=== PATIENT | female | born 1970 | race Caucasian/White ===

== ENCOUNTER → 2017-07-10 06:02 | Outpatient (CLI) | payer OTHER, SELFPAY ==
[2017-07-10 08:29] LABS: Hematocrit 40.3 % (37-47); Hemoglobin 12.9 g/dl (12.0-15.0); Mean Corpuscular Hgb 30.6 pg (27.0-32.0); Mean Corpuscular Volume 95.5 fL (81-99); Mean Platelet Vol. 11.3 fl (6.2-12.0); Platelet Count 226 K/mm3 (150-450); RBC Distribution Width CV 12.5 % (11.6-14.6); RBC Distribution Width SD 43.4 fl (35.1-43.9); Red Blood Count 4.22 M/mm3 (4.2-5.4); White Blood Count 5.8 K/mm3 (4.4-11.0)
[2017-07-10 08:40] LABS: Scan Indicated on CBC? Y/N NO
[2017-07-10 08:58] LABS: ALB/GLOB Ratio 1.2 RATIO (0.9-2.4); AST(SGOT) 11 U/L (15-37); Alanine Aminotransfer ALT/SGPT 19 U/L (13-56); Albumin, Serum 3.8 g/dL (3.2-5.0); Alkaline Phosphatase 59 U/L (45-117); Anion Gap 7 (5-15); BUN 17 mg/dL (7-18); BUN/Creat Ratio 26.5 RATIO (10-20); Calcium,Total 8.3 mg/dL (8.5-10.1); Chloride 105 mmol/L (98-107); Creatinine, Serum 0.64 mg/dL (0.55-1.02); EST Glomerular Filtration Rate 106 mL/min (>60); Est Glom Filt Rate - Afr Amer 129 mL/min (>60); Globulin 3.3 g/dL (2.2-4.2); Glucose 73 mg/dL (74-106); Potassium 3.8 mmol/L (3.5-5.1); Protein, Total 7.1 g/dL (6.4-8.2); Sodium Level 138 mmol/L (136-145); Thyroid Stim Hormone (TSH) 1.37 uIU/mL (0.358-3.74)
== END ==
PROVIDERS: Family Provider Preventive Medicine Occupational Medicine; PCP Preventive Medicine Occupational Medicine; Visit Provider Preventive Medicine Occupational Medicine
DX: R53.83 Other fatigue (principal)
CPT/HCPCS: 36415; 80053; 84443; 85027

== ENCOUNTER → 2017-08-13 10:32 | Outpatient (CLI) | payer OTHER, SELFPAY | PROVIDERS: Family Provider Internal Medicine; PCP Internal Medicine; Visit Provider Internal Medicine | DX: K92.2 Gastrointestinal hemorrhage, unspecified (principal) | CPT/HCPCS: 82274 ==

== ENCOUNTER 2017-09-11 07:21 | Day surgery (SDC) | payer OTHER, SELFPAY ==
[2017-09-11] VITALS (8 sets, daily range): BP systolic 92–114; BP diastolic 46–78; PULSE 64–81; RESP 14–18; TEMP 36.8–36.9; O2SAT 99–100; BMI 26.6
--- NOTE | 2017-09-11 09:10 | PCM.OPRPT ---
Problem List (1) Lower GI bleed Status: Chronic Report of Operation Date of Procedure: 09/11/17 Pre-Operative Diagnosis: GI bleeding Post-Operative Diagnosis: Sigmoid polyp Surgery/Procedure Performed:: Colonoscopy with snare polypectomy and tattoo Specimen's removed: Sigmoid polyp Description of Procedure: The major risks and benefits associated with the procedure were explained to the patient in detail. The patient verbalized understanding and agreement with the same. The patient was brought to the endoscopy suite. After adequate sedation was achieved, the patient was placed in the left lateral decubitus position and a digital rectal exam was performed. This examination was within normal limits. A well-lubricated colonoscope was then inserted into the rectum and advanced under direct visualization to the level of the cecum. The bowel prep was good. The cecum was identified by both visual and anatomic landmarks. A photograph was taken of the end of the cecum. The scope was then fully withdrawn while examining the color, texture, anatomy and integrity of the mucosa from the cecum to the anal canal. The findings were consistent with normal colonic mucosa. The patient did have a large pedunculated polyp in the mid sigmoid colon. This was at approximately 40 cm. The cautery snare was used to take this polyp at its stalk in the circumferential colon at this point was tattooed with Isa ink. The specimen was then removed. Over 6 minutes were taken to examine the colonic mucosa. Upon reaching the rectum the scope was retroflexed to examine the distal rectal vault. The scope was then straightened and was completely retrieved upon exiting the anal canal and the procedure was terminated. The patient was then transferred to the recovery room in stable condition. Recommendations for follow up: Dependent on pathology
--- NOTE | 2017-09-11 09:50 | COLBX_PTH ---
PATIENT: CARLOS ALBERTO RAO LOC: EN U#:[id number] AGE/SX: 46/F ROOM: RE09/11/[address]: Dr. Laron Scott MD : 1970 BED: DIS: 09/11/2017 SPEC #: [id number] RECD: 09/11/17 09:50 STATUS: KARIN NATHAN #: [id number] ANNA: 09/11/17 09:[address]: Laron Scott DEPT: SURGICAL PATHOLOGY RECD BY: Chuck Whitten ENTERED: 09/11/17 12:22 SP TYPE: COLON BX OTHR DR: Dr. 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 AM:odell 09/12/17 COMMENT The dysplasia is close to the lumen surface. Clinical correlation is suggested. MICROSCOPIC DESCRIPTION Slides are reviewed. GROSS DESCRIPTION Received in fixative is one container labeled with the patient's name and designated sigmoid colon polyp. The specimen consists of a polypoid fragment of cisneros tissue measuring 2.5 x 1.5 x 0.6 cm. Also present in the specimen container are multiple irregular fragments of cisneros tissue measuring in aggregate 0.3 x 0.3 x 0.1 cm. The largest fragment is bisected and submitted along with the smaller fragments in one cassette. / AM:odell 09/11/17 TC:1 CPT: 48754
== END 2017-09-11 10:19 | disposition home or self-care (01) ==
LOC: EN 07:21 → AC 07:22
PROVIDERS: Family Provider Internal Medicine; PCP Internal Medicine; Visit Provider Surgery
PROC: 0DJD8ZZ Inspection of Lower Intestinal Tract, Via Natural or Artificial Opening Endoscopic (ICD-10-PCS; CPT 45378; principal; 2017-09-11 08:25)
DX: D12.5 Benign neoplasm of sigmoid colon (principal); L81.8 Other specified disorders of pigmentation; G43.909 Migraine, unspecified, not intractable, without status migrainosus; Z87.891 Personal history of nicotine dependence
CPT/HCPCS: 45380; 88305; J7120; A4648

== ENCOUNTER → 2017-11-15 13:54 | Outpatient (CLI) | payer OTHER, SELFPAY ==
--- NOTE | 2017-11-15 13:55 | US_ITS ---
STUDY: ABDOMINAL ULTRASOUND - RIGHT UPPER QUADRANT REASON FOR VISIT: Female, 46 years old. Right upper quadrant pain. TECHNIQUE: Ultrasound evaluation of the right upper quadrant was performed with real-time and static rushing-scale imaging. TECHNICAL QUALITY: Adequate. COMPARISON: None. FINDINGS: Liver: The liver measures 15.2 cm. There is normal echogenicity of the liver. The bile ducts are within normal limits. There is hepatic color flow. The direction of portal flow is hepatopetal. There is a 1.3 cm x 1.7 cm x 1.57 m cyst in the left lobe of the liver. Gallbladder: Normal distended gallbladder. The gallbladder wall measures 2.4 mm. There is a negative sonographic Carroll's sign. There is no pericholecystic fluid. There are no gallstones. Common Bile Duct (C.B.D.): The common bile duct measures 1.6 mm. Pancreas: Normal size of the head, body and tail of the pancreas. There is normal echogenicity of the pancreas. There is no demonstrated pancreatic mass or cyst. Right Kidney: Normal size of the right kidney. The right kidney measures 10.7 cm x 4.8 cm x 3.9 cm. Normal renal cortex. The right cortex measures 1.0 cm. There is no demonstrated renal mass or cyst. There is no right hydronephrosis. US/Gallbladder IMPRESSION: 1.3 cm x 1.7 cm x 1.5 cm cyst in the left lobe of the liver. Electronically Signed: Neri Nur MD at 15:34 EDT Tel [phone], Service support ,
== END ==
PROVIDERS: Family Provider Internal Medicine; PCP Internal Medicine; Visit Provider Nurse Practitioner Family
DX: R10.11 Right upper quadrant pain (principal); R10.13 Epigastric pain; K21.9 Gastro-esophageal reflux disease without esophagitis
CPT/HCPCS: 76705

== ENCOUNTER → 2017-11-28 06:36 | Outpatient (CLI) | payer OTHER, SELFPAY ==
[2017-11-29 14:52] LABS: H. Pylori Antibody (IgG) 0.31 (0.00-0.79)
== END ==
PROVIDERS: Family Provider Internal Medicine; PCP Internal Medicine; Visit Provider Surgery
DX: R10.13 Epigastric pain (principal)
CPT/HCPCS: 36415; 86677

== ENCOUNTER 2018-02-08 06:57 | Day surgery (SDC) | payer OTHER, SELFPAY ==
--- NOTE | 2018-02-08 | IMM_PTH ---
PATIENT: CARLOS ALBERTO RAO LOC: EN U#:[id number] AGE/SX: 47/F ROOM: RE02/08/[address]: Dr. Laron Scott MD : 1970 BED: DIS: 02/08/2018 SPEC #: [id number] RECD: 02/08/18 12:11 STATUS: KARIN RECecy #: [id number] ANNA: 02/08/18 00:[address]: Laron Scott DEPT: IMMUNOHISTOCHEMISTRY RECD BY: Libby Stiles ENTERED: 02/08/18 12:11 SP TYPE: IMMUNO OTHR DR: Dr. Jason Garner MD Tissues: Stomach, NOS Procedures: H Pylori (initial) PHYSICIAN & [place] [id number] SPECIMEN INFORMATION: Tissue Source: Antral biopsy Clinical Info: Epigastric abdominal pain Specimen Number: [id number] CPT code: 15082 METHODOLOGY: Deparaffinized sections of prefer/formalin-fixed tissue or PAP/DQ stained slides are incubated with monoclonal/polyclonal antibodies/oligonucleotide probes. Localization is made via biotin free immunoperoxidase method. Appropriate controls are performed and reacted as expected. Results on target cell population are indicated in the following table: RESULTS: ANTIBODY / CLONE RESULT H Pylori (polyclonal) negative These tests were developed and their performance characteristics determined by [facility]. They may not have been cleared or approved by the U.S. Food and Drug Administration. The FDA has determined that such clearance or approval is not necessary. INTERPRETATION: Antral biopsy: Negative for Helicobacter pylori organisms. AM:odell 02/11/18
[2018-02-08 07:11] VITALS: BP 108/77; PULSE 67; RESP 12; TEMP 36.8; O2SAT 100; BMI 26.9
--- NOTE | 2018-02-08 08:00 | GASB_PTH ---
PATIENT: CARLOS ALBERTO RAO LOC: EN U#:[id number] AGE/SX: 47/F ROOM: RE02/08/[address]: Dr. Laron Scott MD : 1970 BED: DIS: 02/08/2018 SPEC #: [id number] RECD: 02/08/18 10:07 STATUS: KARIN NATHAN #: [id number] ANNA: 02/08/18 08:[address]: Laron Scott DEPT: SURGICAL PATHOLOGY RECD BY: Toby Sanchez ENTERED: 02/08/18 10:52 SP TYPE: Gastric Bx OTHR DR: Dr. Jason Garner MD Tissues: Gastric mucous membrane Procedures: Surgery Specimen Level IV HEADER OPERATION: EGD ([facility] [place]) PRE-OP DIAGNOSIS: Epigastric abdominal pain TISSUE SUBMITTED: Antral biopsy for histo and H. pylori MICROSCOPIC DIAGNOSIS Gastric antrum, biopsy: Mild chronic gastritis. AM:odell 02/11/18 COMMENT The results of immunohistochemistry for Helicobacter pylori will be reported separately ([id number]). MICROSCOPIC DESCRIPTION Slides are reviewed. GROSS DESCRIPTION Received in fixative is one container labeled with the patient's name and designated antral biopsy. The specimen consists of two irregular fragments of light cisneros soft tissue that in aggregate measure 0.4 x 0.3 x 0.1 cm. The specimen is totally submitted in one cassette. / SJ:rg 02/08/18 TC:3 CPT: 74104
[2018-02-08 08:19] VITALS: BP 108/77; BP 87/38; PULSE 74; RESP 16; TEMP 37; O2SAT 98
--- NOTE | 2018-02-08 08:19 | OP.ENDO_ITS ---
Patient Name: Danielle Carlton Procedure Date: 02/08/2018 7:56 AM Date of : 1970 Age: 47 Procedure: Upper GI endoscopy Indications: Heartburn, Suspected gastro-esophageal reflux disease Providers: Laron Scott MD Referring MD: Jason Garner Md Medicines: Monitored Anesthesia Care Complications: No immediate complications. Procedure: Pre-Anesthesia Assessment: - Prior to the procedure, a History and Physical was performed, and patient medications and allergies were reviewed. The patient's tolerance of previous anesthesia was also reviewed. The risks and benefits of the procedure and the sedation options and risks were discussed with the patient. All questions were answered, and informed consent was obtained. Prior Anticoagulants: The patient has taken no previous anticoagulant or antiplatelet agents. After reviewing the risks and benefits, the patient was deemed in satisfactory condition to undergo the procedure. After obtaining informed consent, the endoscope was passed under direct vision. Throughout the procedure, the patient's blood pressure, pulse, and oxygen saturations were monitored continuously. The gastroscope was introduced through the mouth, and advanced to the second part of duodenum. The upper GI endoscopy was accomplished without difficulty. The patient tolerated the procedure well. Scope In: 8:07:34 AM Scope Out: 8:10:58 AM Total Procedure Duration Time 0 hours 3 minutes 24 seconds Findings: Mild inflammation was found in the first portion of the duodenum. The esophagus was normal. The stomach was normal. The cardia and gastric fundus were normal on retroflexion. Biopsies were taken with a cold forceps in the gastric antrum for Helicobacter pylori testing. Impression: - Duodenitis. - Normal esophagus. - Normal stomach. - Biopsies were taken with a cold forceps for Helicobacter pylori testing. Recommendation: - Discharge patient to home. - Resume regular diet. - Continue present medications. - Patient has a contact number available for emergencies. The signs and symptoms of potential delayed complications were discussed with the patient. Return to normal activities tomorrow. Written discharge instructions were provided to the patient. - Await pathology results. Procedure Code(s): --- Professional --- 29814, Esophagogastroduodenoscopy, flexible, transoral; with biopsy, single or multiple Diagnosis Code(s): --- Professional --- K29.80, Duodenitis without bleeding R12, Heartburn CPT copyright 2017 [employer]. All rights reserved. The codes documented in this report are preliminary and upon medical biller coder review may be revised to meet current compliance requirements. MD Laron Pelaez MD 02/08/2018 8:18:55 AM This report has been signed electronically. Number of Addenda: 0 Note Initiated On: 02/08/2018 7:56 AM
[2018-02-08 08:25] VITALS: BP 103/69; BP 108/77; PULSE 77; RESP 16; O2SAT 96
[2018-02-08 08:30] VITALS: BP 100/70; BP 108/77; PULSE 75; RESP 16; O2SAT 96
[2018-02-08 08:35] VITALS: BP 108/77; BP 99/76; PULSE 72; RESP 16; TEMP 36.8; O2SAT 100
[2018-02-08 08:55] VITALS: BP 108/77
--- NOTE | 2018-02-26 07:44 | PCM.HP.STD ---
Problem List (1) Abdominal pain Status: Acute Qualifiers: Abdominal location: epigastric Qualified Code(s): R10.13 - Epigastric pain History of Present Illness Date of Admission: 02/08/18 The patient is a 47 year old F who has been having epigastric pain and GERD and is here for evaluation of her distal esophagus. Past Medical History Past Medical History (Chronic Problems): Chronic Problems (Last Reviewed 01/08/18 @ 14:10 by Deb Che) Lower GI bleed (Chronic) Chronic constipation (Chronic) Chronic sinusitis (Chronic) Migraines (Chronic) Heart valve problem (Chronic) Heart murmur (Chronic) Frequent headaches (Chronic) Back problem (Chronic) Medical History: Medical History (Last Reviewed 01/08/18 @ 14:10 by Deb Che) Lower GI bleed (Chronic) K92.2 Chronic constipation (Chronic) K59.09 Chronic sinusitis (Chronic) J32.9 Migraines (Chronic) G43.909 Heart valve problem (Chronic) I38 Heart murmur (Chronic) R01.1 Frequent headaches (Chronic) R51 Back problem (Chronic) M53.9 Abdominal pain R10.9 Nausea R11.0 Seasonal allergies J30.2 H/O: hysterectomy Z90.710 Allergies adhesive tape Allergy (Verified 02/08/18 07:09) Rash Home Medications: Ambulatory Orders Medication Instructions Recorded calcium carbonate 600 mg calcium 600 mg PO QDAY tab 08/06/17 (1,500 mg) tablet rizatriptan 10 mg tablet 10 mg PO PRN PRN 08/08/17 lactobacillus rhamnosus R0011 20 1 tab PO DAILY 11/14/17 billion cell capsule omeprazole 40 mg capsule,delayed 40 mg PO DAILY #30 cap 01/11/18 release Surgical History: Surgical History (Last Reviewed 01/08/18 @ 14:10 by Deb Che) History of colonoscopy Onset Date: ~09/11/17 Z98.890 Smoking Status: Former smoker Review of Systems Constitutional: Denies: Anorexia, Fever HEENT: Denies: Difficulty Swallowing Cardiovascular: Denies: Chest Pain Respiratory: Reports: Cough Gastrointestinal: Reports: Abdominal Pain. Denies: Nausea Genitourinary: Denies: Dysuria Musculoskeletal: Denies: Arm Pain Neurological: Denies: Balance problems Psychiatric: Denies: Anxiety, Depression Hematologic/ Lymphatic: Denies: Adenopathy, Anemia VTE Information - Inpt Only VTE Present on Admission: No - Physical Exam General: Alert HEENT: Atraumatic, PERRLA, EOMI, Normocephalic Neck: Supple, No JVD, Negative Carotid Bruits Lungs: Clear to auscultation, Normal air movement Cardiovascular: Regular rate, No murmurs Abdomen: Bowel Sounds Present, Soft, Non Tender, Non-Distended Extremities: No edema, Capillary Refill Less than 3 Seconds Skin: No rashes, No breakdown Musculoskeletal: No Tenderness to Palpation of Joints or Extremities Neurological: Cranial nerves II-XII grossly intact Psych/Mental Status: Normal Affect, Appropriate Vital Signs Temp Pulse Resp BP Pulse Ox 98.2 F 72 16 99/76 100 02/08/18 08:35 02/08/18 08:35 02/08/18 08:35 02/08/18 08:35 02/08/18 08:35 Oxygen Delivery Method Room Air Weight: 171 lb 8.314 oz Body Mass Index (BMI) 26.9 Assessment/Plan All Active Problems (Last Reviewed 01/08/18 @ 14:10 by Deb Ceh) Nausea (Acute) Abdominal pain (Acute) Sinusitis (Acute) 47-year-old female for EGD for GERD and epigastric pain 1. I explained endoscopy in detail to the patient. I explained the risks including but not limited to stroke or heart attack with anesthesia, perforation of the GI tract, bleeding, infection. I explained that any of these could necessitate further emergency surgery. The patient understands and all questions were answered sufficiently. The patient wishes to proceed with procedure. Laron Scott MD Pager: [facility] [address] [place] [address], [address] [place] [address] Office:
== END 2018-02-08 09:05 | disposition home or self-care (01) ==
LOC: EN 06:58 → AC 07:07
PROVIDERS: Family Provider Internal Medicine; PCP Internal Medicine; Visit Provider Surgery
PROC: 0DJ08ZZ Inspection of Upper Intestinal Tract, Via Natural or Artificial Opening Endoscopic (ICD-10-PCS; CPT 43235; principal; 2018-02-08 07:55)
DX: K29.50 Unspecified chronic gastritis without bleeding (principal); K29.80 Duodenitis without bleeding; K21.9 Gastro-esophageal reflux disease without esophagitis; K59.00 Constipation, unspecified; J32.9 Chronic sinusitis, unspecified; G43.909 Migraine, unspecified, not intractable, without status migrainosus; R01.1 Cardiac murmur, unspecified; R12 Heartburn; Z90.710 Acquired absence of both cervix and uterus; Z87.891 Personal history of nicotine dependence
CPT/HCPCS: 43239; 88305; 88342; J7120

== ENCOUNTER → 2018-02-14 13:57 | Outpatient (CLI) | payer OTHER, SELFPAY ==
--- NOTE | 2018-02-14 14:08 | US_ITS ---
STUDY: ABDOMINAL ULTRASOUND REASON FOR EXAM: Female, 47 years old. Liver cysts TECHNIQUE: Transabdominal ultrasound was performed with real-time and static rushing scale imaging. TECHNICAL QUALITY: Adequate. COMPARISON: November 15, 2017 FINDINGS: Liver: The liver measures 15 cm. There is normal echogenicity of the liver. The bile ducts are within normal limits. There is hepatic color flow. The direction of portal flow is hepatopetal. There is a cyst in the LEFT lobe of liver measuring 14 x 17 x 16 mm. Portal vein measurement: Gallbladder: Normal distended gallbladder. The gallbladder wall measures 2 mm. There is a negative sonographic Carroll's sign. There is no pericholecystic fluid. There are no gallstones. Common Bile Duct (C.B.D.): The common bile duct measures 3 mm. Pancreas: Normal size of the head, body and tail of the pancreas. There is normal echogenicity of the pancreas. There is no demonstrated pancreatic mass or cyst. Spleen: Normal size of the spleen. The spleen measures 8.5 x 4.4 x 3.6 cm. Right Kidney: Normal size of the right kidney. The right kidney measures 10.9 x 5.6 x 3.7 cm. Normal renal cortex. The right cortex measures 1.2 cm. There is no demonstrated renal mass or cyst. There is no right hydronephrosis. Left Kidney: Normal size of the left kidney. The left kidney measures 10.8 x 4.7 x 4.9 cm. Normal renal cortex. The left cortex measures 1.4 cm. There is no demonstrated renal mass or cyst. There is no left hydronephrosis. Aorta: 2.1 cm I.V.C.: The IVC is patent. There is no ascites. US/Abdomen Complete IMPRESSION: There is a cyst in the LEFT lobe of liver as described. This is unchanged from prior study. There is NO solid liver mass. There is NO cholelithiasis, cholecystitis or biliary ductal dilatation. Electronically Signed: Isidro Puri MD at 4:55 EDT , Service support ,
== END ==
PROVIDERS: Family Provider Internal Medicine; PCP Internal Medicine; Visit Provider Nurse Practitioner Family
DX: K76.89 Other specified diseases of liver (principal)
CPT/HCPCS: 76700

== ENCOUNTER → 2018-05-01 13:57 | Outpatient (CLI) | payer OTHER, SELFPAY ==
[2018-02-26 14:35] VITALS: BMI 27.2
--- NOTE | 2018-05-01 13:59 | BI_ITS ---
MAMMOGRAPHY - BILATERAL SCREENING REASON FOR EXAM: Female, 47 years old. Routine annual screening examination. PERTINENT HISTORY: Aunt with breast cancer. TECHNIQUE: Digital bilateral breast sujit (3D mammographic acquisition) in the CC and MLO projections. 2-D mediolateral oblique (MLO) and craniocaudad (CC) views of both breasts were obtained. CAD: Full Field Digital Mammography with Computer Added Detection was performed. COMPARISON: Comparison is made with prior study dated April 30, 2017 and April 25, 2016. FINDINGS: Breast Composition: There are scattered areas of fibroglandular density. There are no dominant masses or suspicious calcifications. There is a stable 7.9 mm x 4 mm well-defined nodule in the upper deep lateral portion of the left breast. This most likely represents a small lymph node. No other significant abnormalities are identified. There has been no significant change since the prior study. BI/SCREENING MAMM (CAD), BILAT IMPRESSION: Stable bilateral screening mammogram. Yearly follow-up mammogram recommended. (A) ASSESSMENT CATEGORY: BIRADS Category 2: Benign. A letter regarding these results will be sent to the patient by the facility within 30 days. Approximately 10% of breast cancers are not detected by mammography. A normal mammogram should not delay biopsy of a clinically suspicious abnormality. [id number] Electronically Signed: Neri Nur MD at 15:26 EST Tel [phone], Service support ,
== END ==
PROVIDERS: Family Provider Internal Medicine; PCP Internal Medicine; Referring Provider Obstetrics & Gynecology; Visit Provider Obstetrics & Gynecology
DX: Z12.31 Encounter for screening mammogram for malignant neoplasm of breast (principal)
CPT/HCPCS: 77063; 77067

== ENCOUNTER 2018-12-20 06:57 | Day surgery (SDC) | payer OTHER, SELFPAY ==
[2018-06-11 14:28] VITALS: BMI 27.2
[2018-12-20] VITALS (7 sets, daily range): BP systolic 86–110; BP diastolic 51–72; PULSE 65–78; RESP 16; TEMP 36.2–37.2; O2SAT 98–100; BMI 26.2
--- NOTE | 2018-12-20 07:46 | HP.PCM_ITS ---
History of Present Illness Date of Admission: 12/20/18 The patient is a 47 year old F who had her last colonoscopy in August of last year. Patient had a 3 cm tubovillous adenoma with high-grade dysplasia. She is not having any abdominal pain or blood in her stool. Past Medical/Surgical History - Planned Operation Planned Operative Procedure/s: cscope open access Date of Operative Procedure: 12/20/18 Permit Signed: No S.O.S: No Is This Patient Having a Total Joint: No - Previous Hospitalizations/Surgeries HX Hospitalizations: No HX of Surgeries: colonoscopy 2017. hysterectomy 2015. breast lift 2019 Any Problems With Anesthesia: No You/Your Family Experience Fever (Hyperthermia) With Anes: No Cholinesterase deficiency: No - Cardiovascular Hx Chest Pain within Last 2 months: No Hx of Irregular Heartbeat and/or Afib: No Hx Heart Attack: No Hx Congestive Heart Failure: No Hx Rheumatic Fever: No Hx Hypertension: No Hx Internal Defibrillator: No Hx Pacemaker: No Hx Cardiac Catheterization: No Hx Cardiac Surgery/Stents/Etc.: No Hx Stress Test: Yes - 2014 and echo 2015 HX Edema: No Hx Pain in Legs when Walking/Leg Cramps: No - Respiratory Chronic Cough: No HX of Shortness of Breath: No Hoarseness: No Hx Chronic Obstructive Pulmonary Disease (COPD): No Hx Asthma: No Hx Emphysema: No Hx Sleep Apnea: No Hx Oxygen Use at Home: No Hx Respiratory Tract Infection/Cold (presently): No Do You Snore Loudly (louder than talking or can be heard): No Do You Often Feel Tired/ Fatigued/ Sleepy Dring Daytime?: No Has Anyone Observed You Stop Breathing During Sleep?: No Result (for STOP score): Negative Hx Smoking: Yes - quit 1987 Smoking Status: Former smoker - Gastrointestinal Hx Gastroesophageal Reflux: Yes Controlled With Meds: Yes - . Hx Gastrointestinal Disorders: No Hx Gastrointestinal Bleed: No Hx Ulcer: No Hx Hiatal Hernia: No Difficulty Chewing/Swallowing: No Recent Onset of Swallowing Problems: No Special diet followed at home: No Hx Unplanned Weight Loss of 20#: No HX Unplanned Weight Gain of 20#: No - Neurological Hx Seizures: No HX Syncope/Blackout Spells/Unconsciousness: No Hx CVA/Stroke: No Hx Transient Ischemic Attacks (TIA): No Hx Multiple Sclerosis: No Hx Parkinson's Disease: No Hx Head/Neck Injury: No Hx Headaches: Yes - migraines Hx Back Injury/Pain: No Recent Onset of Speech Difficulty: No Restless Legs: No Does patient have nerve stimulator: No - Blood Disorder Hx Leukemia: No Bleeding Tendencies: No Hx Deep Vein Thrombosis: No Hx High Cholesterol: No Blood Transmitted Disease: No Hx Hepatitis: No Hx Cirrhosis: No Hx Anemia: No Hx Blood Disorders: No - Reproduction Is Patient Lactating: No Hx Hysterectomy: Yes Hx Tubal Ligation: No Are You Post Menopause: No - Genitourinary Hx Renal Disease: No - Musculoskeletal Hx Arthritis: No Hx Rheumatoid Arthritis: No Hx Gout: No Recent Onset of an Orthopedic Problem: No - Endocrine Hx Diabetes: No Thyroid Disease: No Hx Steroid Therapy: No - Psycho/Social Hx Substance Use: No Hx Alcohol Use: No Hx Anxiety: No Hx Depression: No Mental Illness: No Hx Dementia: No - Miscellaneous Hx Cancer: No Recent Exposure to Contagious Disease: No Active MRSA: No Hx of C-Diff: No Any Loose Teeth: No Allergies adhesive tape Allergy (Verified 12/16/18 12:07) Rash - Discharge Is Pt Admitted From a [facility], or a [facility]: No Who Could Help: family After D/C, Where Do you Plan to Go: Return Home - Physical Exam General: Alert, Oriented x3 Lungs: Normal air movement Cardiovascular: Regular rate, Regular Rhythm Abdomen: Soft, Non Tender, Non-Distended Vital Signs Temp Pulse Resp BP Pulse Ox 98.9 F 68 16 110/72 100 12/20/18 07:09 12/20/18 07:09 12/20/18 07:09 12/20/18 07:09 12/20/18 07:09 Oxygen Delivery Method Room Air Weight: 167 lb 8.821 oz Body Mass Index (BMI) 26.2 Assessment/Plan All Active Problems (Last Reviewed 06/11/18 @ 14:28 by Isabel Wild) Nausea (Acute) Abdominal pain (Acute) Sinusitis (Acute) 47-year-old female with history of tubovillous adenoma with high-grade dysplasia 1. As the patient had a very large polyp with a large pedunculated stalk and high-grade dysplasia I recommended that the patient have repeat colonoscopy 1 year after her polypectomy. She will have colonoscopy today and if this is normal I would recommend repeat in 5 years. 2. I explained endoscopy in detail to the patient. I explained the risks including but not limited to stroke or heart attack with anesthesia, perforation of the GI tract, bleeding, infection. I explained that any of these could n ecessitate further emergency surgery. The patient understands and all questions were answered sufficiently. The patient wishes to proceed with procedure. Laron Scott MD Pager: [facility] [address] [place] [address] [address] [place] [address] Office: Surgery Risks - Colonoscopy Risks Include but are not Limited To: Risks include but are not limited to: Bleeding, perforation requiring further surgery, inability to complete colonoscopy requiring barium enema.
--- NOTE | 2018-12-20 08:25 | OP.ENDO_ITS ---
12/20/2018 Jason Garner MD [address] [place] [place] [address] Re : Colonoscopy procedure for Danielle Carlton Dear Dr. Garner This procedure was performed on Thursday, December 20, 2018. My impressions and recommendations are as follows: Impressions : - The entire examined colon is normal on direct and retroflexion views. - No specimens collected. Recommendations : - Discharge patient to home. - Resume previous diet. - Continue present medications. - Repeat colonoscopy in 5 years for surveillance. My findings are described in the full procedure note, which is enclosed. If I can be of further assistance, please feel free to contact me at Doctor phone number(s): , Work: . Sincerely, Laron Scott MD 12/20/2018 8:24:46 AM This report has been signed electronically.
== END 2018-12-20 09:20 | disposition home or self-care (01) ==
LOC: EN 06:57 → AC 06:58
PROVIDERS: Family Provider Internal Medicine; PCP Internal Medicine; Referring Provider Internal Medicine; Visit Provider Surgery
PROC: 0DJD8ZZ Inspection of Lower Intestinal Tract, Via Natural or Artificial Opening Endoscopic (ICD-10-PCS; CPT 45378; principal; 2018-12-20 07:55)
DX: Z86.010 Personal history of colon polyps (principal); Z87.891 Personal history of nicotine dependence; K21.9 Gastro-esophageal reflux disease without esophagitis
CPT/HCPCS: 45378; J7120; A4216; J2405

== ENCOUNTER → 2019-04-09 13:49 | Outpatient (CLI) | payer OTHER, SELFPAY ==
[2019-01-08 14:59] VITALS: BMI 27.2
--- NOTE | 2019-04-09 13:54 | BI_ITS ---
MAMMOGRAPHY - BILATERAL SCREENING REASON FOR EXAM: Female, 48 years old. Routine annual screening examination. PERTINENT HISTORY: Aunt with breast cancer. Recent bilateral breast lift. TECHNIQUE: Digital bilateral breast laila (3D mammographic acquisition) in the CC and MLO projections. 2-D mediolateral oblique (MLO) and craniocaudad (CC) views of both breasts were obtained. CAD: Full Field Digital Mammography with Computer Added Detection was performed. COMPARISON: Comparison is made with prior study dated May 01, 2018 and April 30, 2017. FINDINGS: Breast Composition: There are scattered areas of fibroglandular density. There are no dominant masses or suspicious calcifications. Stable 7.9 mm x 4 mm well-defined nodule in the upper deep lateral aspect of the left breast. This most likely represents a small intramammary lymph node. Stable small bilateral benign appearing axillary lymph nodes. No other significant abnormalities are identified. There has been no significant change since the prior study. BI/SCREEN MAMM (CAD) W/LAILA BILAT IMPRESSION: Stable bilateral screening mammogram. Yearly follow-up mammogram recommended. (A) ASSESSMENT CATEGORY: BIRADS Category 2: Benign. A letter regarding these results will be sent to the patient by the facility within 30 days. Approximately 10% of breast cancers are not detected by mammography. A normal mammogram should not delay biopsy of a clinically suspicious abnormality. [id number] Electronically Signed: Neri Nur, at 15:04 EST , Service support ,
== END ==
PROVIDERS: Family Provider Internal Medicine; PCP Internal Medicine; Referring Provider Obstetrics & Gynecology; Visit Provider Obstetrics & Gynecology
DX: Z12.31 Encounter for screening mammogram for malignant neoplasm of breast (principal)
CPT/HCPCS: 77063; 77067

== ENCOUNTER → 2019-12-18 13:40 | Outpatient (CLI) | payer OTHER, SELFPAY ==
[2019-10-02 14:42] VITALS: BMI 27.2
--- NOTE | 2019-12-18 13:46 | RAD_ITS ---
STUDY: X-RAY - RIGHT KNEE REASON FOR EXAM: Female, 48 years old. Bilateral knee pain x 2 months+ -- NKI -- left knee hurts more than right TECHNIQUE: 4 view(s) of the knee. COMPARISON: None. FINDINGS: Normal visualized distal femur. Normal visualized proximal tibia and fibula. Normal proximal tibiofibular articulation. Normal medial femorotibial compartment. Normal lateral femorotibial compartment. Normal patellofemoral articulation. The soft tissue structures are unremarkable. RAD/Knee 4 or More Views IMPRESSION: Normal x-ray examination of the knee. Electronically Signed: Neri Nur, at 15:34 EDT , Service support ,
--- NOTE | 2019-12-18 13:47 | RAD_ITS ---
STUDY: X-RAY - LEFT KNEE REASON FOR EXAM: Female, 48 years old. Bilateral knee pain x 2 months+ -- NKI -- left knee hurts more than right TECHNIQUE: 4 view(s) of the knee. COMPARISON: None. FINDINGS: Normal visualized distal femur. Normal visualized proximal tibia and fibula. Normal proximal tibiofibular articulation. Normal medial femorotibial compartment. Normal lateral femorotibial compartment. Normal patellofemoral articulation. The soft tissue structures are unremarkable. RAD/Knee 4 or More Views IMPRESSION: Normal x-ray examination of the knee. Electronically Signed: Neri Nur, at 15:33 EDT , Service support ,
== END ==
PROVIDERS: PCP Internal Medicine; Visit Provider Nurse Practitioner Family
DX: M25.562 Pain in left knee (principal); M25.561 Pain in right knee
CPT/HCPCS: 73564

== ENCOUNTER 2020-01-12 14:00 | Outpatient (RCR) | payer OTHER, SELFPAY ==
[2019-10-02 14:42] VITALS: BMI 27.2
--- NOTE | 2019-12-30 15:02 | HP.PTEVAL_ITS ---
Patient's Visit Information CARLOS ALBERTO HERRERA is a 49 year old F referred to Physical Therapy by RICK SolorioC with a diagnosis of LEFT PAIN AND RIGHT KNEE PAIN. Date of Evaluation: 12/30/19 Physical Therapist: Nelson Peralta, PT, Cert MDT, OCS - Visit Plan Frequency: 2x /Week Duration: 4 Weeks Plan: PT INTERVENTIONS ROM,FLEXABLITY KNEE ,GRADED STRENGTHENING QUADS/HAMS/HIP ,MODALTIES FOR PAIN/EDEMA - Subjective This 49 y/o female presents to physical therapy with left knee pain and right knee pain. Patient has had knee 2 months ago mainly left knee.. Did x-rays - .Location of pain medial/lateral knee and posterior knee.Denies parat hesia/tingling. Aggravating factors unable to knee squat,kneeling ,turning catches ,stairs with ones step at time,extended walking standing,elevation from chair. Patient sleeping is affected by pain.Patient pain affects housework tasks and ADLS' and job demands. Patient symptoms affects QOL.May recommend Ortho consult. SOCAIL: . VOCATION: Registration - Pain Left Knee Pain Intensity (Out of 10): 7 Pain Intensity Range: 10 - Objective POSTURE: knee slightly flexed. PALAPTION: medial/lateral knee joint line. EDEMA: 44cm joint line. GAIT: antalgic gait with decrease stance time with knee flexed. AROM: left 5-110 degrees with pain..overpressure increases pain. MMT:left quads 4-/5,hip flexion 4-/5,abd 4-/5,hams 4/5,ankle 4/5. STAIRS: one step at a time with rail - Special Tests L Knee Chris - Meniscus: Positive L Knee Apley - Meniscus: Positive L Knee Travis - ACL: Negative L Knee Anterior Drawer - ACL: Negative L Knee Posterior Drawer - PCL: Negative L Knee Posterior Sag - PCL: Negative L Knee Valgus - MCL: Negative L Knee Varus - LCL: Negative - Goals Goal 1:: Patient to be I with HEP Goal Time Frame: 4-6 Weeks Goal 2:: Patient to increase strength of quads/hams/hip to 4/5 to improve gait Goal Time Frame: 4-6 Weeks Goal 3:: Patient increase AROM 0-125 degrees or > to improve function. Goal Time Frame: 4-6 Weeks Goal 4:: Patient to normailze gait pattern Goal Time Frame: 4-6 Weeks Goal 5:: Patient to improve LFES score by 10 points or> to improve QOL. Goal Time Frame: 4-6 Weeks Goal 6:: Patient to decrease pain in knee by 50% or > to improve function Goal Time Frame: 4-6 Weeks - Rehabilitation Potential Physical Therapy Diagnosis: Patient has left knee pain with swelling,poor ROM , strength ,impairs gait ,stairs and ADLS and housework tasks thus will benifit from skilled PT . May need MRI if pain presists Rehabilitation Potential: Good - Anticipated Interventions Patient/Client Instruction: Educate patient on: Condition, Plan of Care For the Purpose of:: To decrease pain, To decrease swelling/inflammation, To increase ROM, To improve nutrient delivery to tissue, To increase oxygenation perfusion, To improve muscle performance and motor function, To increase tolerance to activity/condition/position, To decrease level of supervision to perform tasks, To improve gait and locomotor functions, To improve health of tissue, To decrease soft tissue restriction, To increase flexibility/ROM, To improve ability to perform tasks related to life management Therapeutic Exercise to Include: Strength training, Flexibilty training, Passive ROM, Active ROM Comment: HIP/KNEE For the Purpose of:: To decrease pain, To increase ROM, To improve nutrient delivery to tissue, To increase oxygenation perfusion, To improve muscle performance and motor function, To improve ability to perform ADL's, To increase tolerance to activity/condition/position, To improve performance and independence with ADL's, To improve health of tissue, To decrease soft tissue restriction, To increase flexibility/ROM, To reduce risk of recurrence, To improve ability to perform tasks related to life management TENS: Yes IF ES: Yes Thermo therapy (hot pack): Yes Ultrasound (thermal/non thermal): Yes Vasopneumatic device: Yes For the Purpose of:: To decrease pain, To decrease swelling/inflammation, To increase ROM, To improve nutrient delivery to tissue, To increase oxygenation perfusion, To improve health of tissue, To decrease soft tissue restriction Thank you for the opportunity to evaluate your patient. For Medicare and Medicare HMO plans, please review the plan of care and approve it. It will need to be FAXED BACK to us at [phone] for Medicare purposes. For Medicare only, by signing this I certify the plan of care. Please let me know if there are questions or concerns regarding this plan of care. Physician Signature: Date:
--- NOTE | 2020-04-29 09:54 | HP.PTDCNRP_ITS ---
CARLOS ALBERTO HERRERA was seen in my office for initial evaluation on 12/30/19. The following Plan of Care was established for this patient: Initial Frequency: 2x /Week Initial Duration: 4 Weeks Patient/Client Instruction: Educate patient on: Condition, Plan of Care For the Purpose of:: To decrease pain, To decrease swelling/inflammation, To increase ROM, To improve nutrient delivery to tissue, To increase oxygenation perfusion, To improve muscle performance and motor function, To increase tolerance to activity/condition/position, To decrease level of supervision to perform tasks, To improve gait and locomotor functions, To improve health of tissue, To decrease soft tissue restriction, To increase flexibility/ROM, To improve ability to perform tasks related to life management Therapeutic Exercise to Include: Strength training, Flexibilty training, Passive ROM, Active ROM For the Purpose of:: To decrease pain, To increase ROM, To improve nutrient delivery to tissue, To increase oxygenation perfusion, To improve muscle pe rformance and motor function, To improve ability to perform ADL's, To increase tolerance to activity/condition/position, To improve performance and independence with ADL's, To improve health of tissue, To decrease soft tissue restriction, To increase flexibility/ROM, To reduce risk of recurrence, To improve ability to perform tasks related to life management TENS: Yes IF ES: Yes Thermo therapy (hot pack): Yes Ultrasound (thermal/non thermal): Yes Vasopneumatic device: Yes For the Purpose of:: To decrease pain, To decrease swelling/inflammation, To increase ROM, To improve nutrient delivery to tissue, To increase oxygenation perfusion, To improve health of tissue, To decrease soft tissue restriction This patient was last seen in our office . Pertinent comments regarding their Physical therapy will appear below: Patient had knee pain .MRI showed meniscus tear trhus underwent s/p knee surgery At this point I will be discontinuing this patient from physical therapy. I would be happy to see this patient again in the future if found appropriate by the physician. Thank you! Nelson Peralta, PT, Cert MDT, OCS
== END 2020-01-12 19:00 | disposition home or self-care (01) ==
LOC: PT 14:00
PROVIDERS: PCP Internal Medicine; Referring Provider Nurse Practitioner Family; Visit Provider Nurse Practitioner Family
DX: M25.561 Pain in right knee (principal); M25.562 Pain in left knee
CPT/HCPCS: 97014; 97110; 97161; G0283

== ENCOUNTER → 2020-01-23 11:15 | Outpatient (CLI) | payer OTHER, SELFPAY ==
[2020-01-21 14:22] VITALS: BMI 30.2
--- NOTE | 2020-01-23 11:16 | MRI_ITS ---
STUDY: MRI LEFT KNEE REASON FOR EXAM: Left medial and lateral knee pain, instability, no specific injury. TECHNIQUE: Standardized fat and water weighted pulse sequences were obtained in all 3 orthogonal planes. COMPARISON: Radiographs 11/18/2019. FINDINGS: There is a small vertical tear of the inferior articular surface of the posterior horn of the medial meniscus (proton-density sagittal images 10, 11). Normal hyaline cartilage of the medial femorotibial compartment. Normal medial femoral condyle and tibial plateau. There is mild periligamentous inflammation of the medial collateral ligament (T2 coronal image 18). Normal distal semimembranosus, gracilis and semitendinosus tendons. There is a small vertical tear of the inferior articular surface of the anterior horn of the lateral meniscus (proton-density sagittal images 27, 28). There is a focal chondral defect of the lateral femoral condyle (T2 coronal images 12-15) measuring approximately 1.2 x 0.6 cm (AP x transverse). Normal lateral femoral condyle and tibial plateau. Normal proximal tibiofibular articulation. Normal lateral collateral (fibular) ligament. Normal popliteus tendon. Normal biceps femoris tendon. Normal anterior cruciate ligament (ACL). Normal posterior cruciate ligament (PCL). There is mild lateral subluxation of the patella (T2 axial image 11). Normal hyaline cartilage of the patellofemoral compartment. Normal medial and lateral patellar retinaculum. Normal visualized quadriceps tendon. Normal patellar tendon. Normal Hoffa''s fat pad. There is a small joint effusion. There is a popliteal cyst measuring approximately 8.5 cm in length with extravasation of fluid (T2 sagittal images 6-12). The otherwise visualized osseous structures are unremarkable. MRI/Lower Ext Joint Only (Routine) IMPRESSION: Small medial meniscal tear. Small lateral meniscal tear. Focal chondral defect of the lateral femoral condyle. Mild lateral subluxation of the patella. Small joint effusion. Popliteal cyst with extravasation of fluid. Electronically Signed: Nehemias Lyles MD at 12:38 EDT Tel , Service support ,
== END ==
PROVIDERS: PCP Internal Medicine; Referring Provider Orthopaedic Surgery; Visit Provider Orthopaedic Surgery
DX: S83.282A Other tear of lateral meniscus, current injury, left knee, initial encounter (principal); M25.562 Pain in left knee
CPT/HCPCS: 73721

== ENCOUNTER → 2020-03-03 15:41 | Outpatient (CLI) | payer OTHER, SELFPAY ==
[2020-02-06 07:55] VITALS: BMI 30.2
--- NOTE | 2020-03-03 15:45 | RAD_ITS ---
HISTORY: plantar fasciitis ADDITIONAL HISTORY: None provided. EXAMINATION/TECHNIQUE: XR Foot Min 3 Views Left weightbearing Number of images including paperwork: 3 COMPARISON: None FINDINGS: BONES: No acute fracture. Plantar enthesophyte. JOINTS: No subluxation. SOFT TISSUES: No distinct foreign body. RAD/Foot min 3 Views IMPRESSION: No acute osseous abnormality. at 0618 Reported and signed by: Adia Noble MD Electronically Signed: Adia Noble MD at 6:18 EDT Tel , Service support ,
== END ==
PROVIDERS: PCP Internal Medicine; Referring Provider Podiatrist; Visit Provider Podiatrist
DX: M72.2 Plantar fascial fibromatosis (principal)
CPT/HCPCS: 73630

== ENCOUNTER 2020-04-20 09:42 | Day surgery (SDC) | payer OTHER, SELFPAY ==
[2020-04-01 14:08] VITALS: BMI 29.1
[2020-04-19 15:54] LABS: Probe Check PASS; Specimen Processing Control PASS
[2020-04-20] VITALS (13 sets, daily range): BP systolic 88–122; BP diastolic 53–69; PULSE 65–85; RESP 16–18; TEMP 36.1–37.1; O2SAT 92–100; BMI 29.5
--- NOTE | 2020-04-20 10:06 | PCM.HP.BLA ---
History and Physical Date of Admission: 04/20/20 Intake Intake Visit Reasons: left knee Chief Complaint: bilateral knee pain Allergies adhesive tape Allergy (Mild, Verified 01/21/20 14:23) Rash PFSH Medical History Lower GI bleed (Chronic) Chronic constipation (Chronic) Chronic sinusitis (Chronic) Migraines (Chronic) Heart valve problem (Chronic) Heart murmur (Chronic) Frequent headaches (Chronic) Back problem (Chronic) Abdominal pain (Acute) Nausea (Acute) Seasonal allergies (Chronic) Surgical History H/O esophagogastroduodenoscopy (Acute) History of colonoscopy (Acute ~09/11/17) History of colonoscopy (Acute) H/O: hysterectomy (Resolved) Family History Mother CVA (cerebral vascular accident) Arthritis Aunt Breast cancer Social History (Updated 03/31/20 @ 15:[address] Jones Perkins DO) household members: spouse Smoking Status: Former smoker how long ago did patient quit smokin alcohol intake: current alcohol intake frequency: holidays/special occasions only substance use type: does not use what type of physical activity do you participate in: none do you feel safe at home: Yes HPI left knee: Details: Parts of this documentation were recorded by a scribe, this documentation accurately reflects the service provided and the decisions made by me, Dr. Jones Perkins DO 03/31/20 0759. CARLOS ALBERTO HERRERA is a 49 year old F here today for left knee pain. SHe is here to resign surgery consent for surgery that is scheduled for 04/20/2020. Denies numbness, tingling or other associated symptoms.Denies any changes. Ortho Exam General General: Yes no acute distress Neurologic: Yes alert, Yes oriented x3 Psychologic: Yes reasonable and appropriate Right Knee Patella Translation: 1 Left Knee Skin/Wound: No ecchymosis, No erythema, No swelling Homans Sign: No Examination: Yes med jt line tenderness, Yes Lat jt line tenderness, Yes Chris's Test (pain without click) Stability: NML: Anterior Drawer, NML: Posterior Drawer, NML: Valgus 30, NML: Varus 30 Patella Translation: 1 Patella Grind: No Supplemental Info Supplemental Info 01/23/2020 MRILeft knee: Small vertical tear inferior articular surface posterior horn medial meniscus, Small vertical tear inferior articular surface of the anterior horn lateral meniscus, Focal chondral defect posterior aspect lateral femoral condyle measuring 1.2 x 0.6 cm 12/18/2019 x-ray bilateral knees: Normal Assessment & Plan Problems 1. Peripheral tear of medial meniscus, current injury, left knee, subsequent encounter S83.222D 2. Peripheral tear of lateral meniscus, current injury, left knee, subsequent encounter S83.262D 3. Defect of articular cartilage M24.10 Plan Educated that we can preform a left knee scope for meniscectomy vs repair along with possible micro fracture of cartilage defect. Educated that if she has the meniscus repair and/or microfracture repair then she will be NWB for 6 weeks. Reviewed the pre-operative plans with the patient. Risks and benefits of the procedure were fully explained, including but not limited to infection, neurovascular injury, continued pain, arthritis, stiffness, need for further surgery, re-injury, DVT, PE, general risks of anesthesia, and loss of limb or life. The patient understands all the risks and does wish to proceed with written consent for left knee arthroscopic partial medial and lateral meniscectomy vs repair possible micro fracture of lateral femoral condyle with possible bio cartilage, surgery as indicated. Educated that most of her pain is more than likely coming from the cartilage lesion. Follow up 2 weeks post op or sooner if pain, swelling, numbness or associated symptoms, or concerns develop. All questions answered. Patient in agreement of plan. Coding Level of Care Code Global Post Op Diagnoses Peripheral tear of medial meniscus, current injury, left knee, subsequent encounter S83.222D Peripheral tear of lateral meniscus, current injury, left knee, subsequent encounter S83.262D Defect of articular cartilage M24.10 I have re-examined the patient. There are no clinical changes since date of exam Procedure Criteria Procedure Type: Elective COVID Risk Discussion: The surgeon/proceduralist and patient have discussed in detail the risk of exposure to and/or potential harm posed by the COVID-19 virus with having a surgery/procedure at this time versus the risk of delaying the surgery/procedure. It is not possible to know either the risk of delaying the surgery or procedure or chance of getting an infection with perfect accuracy, but a joint decision was made between the patient and the surgeon/proceduralist to proceed at this time with the scheduled surgery/procedure as indicated on the consent form.
[2020-04-20] MEDS: Lactated Ringers 1,000 ML 100 ML IV ×3 (10:17→17:28)
[2020-04-20] MEDS: Bupivacaine Mpf 0.5% 30 ML VIAL (13:00)
[2020-04-20] MEDS: Cefazolin 2 GM in 0.9% Normal Saline 100 ML IV (13:37)
[2020-04-20] MEDS: Epinephrine (1 mg/ml) 1 MG/ML VIAL (13:59)
[2020-04-20] MEDS: Bupiv/Epi 0.5% Mpf 30 ML Vial (14:00)
[2020-04-20] MEDS: morphine PF (epidural) 5 MG/10 ML Vial (15:00)
--- NOTE | 2020-04-20 15:40 | DCINST_ITS ---
Discharge Diet: No Restrictions Discharge Activity: Use Crutches Weight Bearing Status: Toe touch weight bearing Call your doctor if you observe: Shortness of breath, Chest pain Additional Instructions: Ice and elevate next 72 hours .keep dressing on clean and dry for 48 hours then may remove begin showering daily but do not submerge in tub or pool. After shower may apply Band-Aids . Encourage knee range of motion toe-touch weightbearing, use crutches . No strenuous activity. When not ambulating keep iced and elevated next 72 hours. Call with any questions or concerns. Allergies/Adverse Reactions: Allergies adhesive tape Allergy (Mild, Verified 04/20/20 10:09) Rash paper tape ok per patient Medications to take at Discharge rizatriptan 10 mg tablet 10 mg PO PRN PRN #10 tab 11/27/19 omeprazole 40 mg capsule,delayed release 40 mg PO DAILY #90 cap 04/01/20 Cholecalciferol (Vitamin D3) [Vitamin D3] 25 mcg PO DAILY 04/12/20 Cyanocobalamin (Vitamin B-12) [Vitamin B-12] 500 mcg PO DAILY 04/12/20 Loratadine [Claritin] 10 mg PO PRN PRN 04/12/20 Oxycodone [Oxyir] 5 mg PO Q4H PRN PRN #50 tab 04/20/20 The following prescriptions were given: Oxycodone [Oxyir] 5 mg PO Q4H PRN PRN #50 tab PRN Reason: Pain Score 6-10 Transmission Status: Received by [facility] Primary Care Physician: Jason Garner MD [Primary Care Provider] - Test Results: Test results from this visit will be discussed in further detail at your follow- up appointment, if applicable. Please Follow Up With: Jones Perkins DO - 2 weeks
--- NOTE | 2020-04-20 15:42 | OP.PCM_ITS ---
Report of Operation Date of Procedure: 04/20/20 Description of Surgical Findings:: Preop diagnosis: Left knee questionable undersurface posterior horn medial meniscus tear questionable anterior horn lateral meniscus tear cartilage defect lateral femoral condyle Postoperative diagnosis: Degenerative fraying of the lateral meniscal body no anterior horn tear, partial ACL tear, 7 x 15 millimeter chondral defect lateral femoral condyle on the posterior surface engaging with tibial joint surface at 45 degrees. Grade 2-3 lateral tibial plateau with a small area of grade 4 in the posterior lateral tibial plateau, loose body lateral compartment Procedure: [Left knee arthroscopic partial lateral meniscectomy microfracture of lateral femoral condyle and removal of loose body] Anesthesia: General Estimated blood loss: [5] mL Complications: none Indication for procedure: This is a 49-year-old female patient who has had ongoing lateral sided knee pain who has had MRI evidence of questionable meniscal tears and a cartilage defect of the lateral femoral condyle she had failed conservative treatment and did wish to proceed with an elective arthroscopic surgery we did discuss partial meniscectomy versus repair versus in addition to microfracture versus bio cartilage augmentation of lateral femoral condyle. We did discuss the risk that since the lesion was so posterior we may not be able to perform the bio cartilage procedure either way she would be nonweightbearing for 6 weeks. the patient did wish to proceed with an elective arthroscopic surgery to attempt to alleviate the symptoms. Risk benefits and alternatives of the procedure were reviewed including risk of bleeding infection nerve artery tissue damage need for further surgery continued pain and expected postoperative course. Procedure: The patient was met in the preoperative holding area. The operative extremity was identified by both patient and physician and family and marked. Patient was brought back to the operating room on a wheeled cart and transferred to the operating table in the supine position. Anesthesia was started. A well-padded tourniquet was placed on the operative extremity. A lower extremity leg turner was secured to the operative extremity. The contralateral extremity was well-padded and the end of the bed was flexed to 90 degrees. The patient was prepped and draped in the usual sterile fashion. A timeout was called to ensure the proper patient, procedure, and extremity were being contemplated. 0.5% Marcaine with epinephrine was injected into the planned incisional areas under the skin only. An Esmarch was used to exsanguinate the extremity and the tourniquet was inflated. An 11 blade scalpel was used to make a stab incision in the anterior lateral portal. The arthroscope was inserted into the intercondylar notch and inflow and outflow tubes were attached. Arthroscopic visualization began. The medial compartment was entered. An 18-gauge spinal needle was used to establish the placement for anterior medial portal. An 11 blade scalpel was used to make a stab incision. Blunt probe was inserted followed by a meniscal probe. [ It was free of meniscal or cartilage pathology. Particularly the undersurface of the posterior horn of the medial meniscus did not have any tearing as was suspected on MRI] The ACL was [found to be grossly intact with some splitting of the proximal fibers intact]. The lateral compartment was entered the lateral compartment demonstrated degenerative te aring of the body and horn of the lateral meniscus as well as a large loose body partial lateral meniscectomy was performed and removal of loose body the cartilage of the lateral tibial plateau had grade 2-3 changes throughout with a very small area approximately 5 mm of grade 4 in the posterior aspect underneath the lateral meniscus there was noted to be a full-thickness cartilage defect with good cartilage hirsch on the posterior weightbearing surface of the lateral femoral condyle we did debride loose cartilage to a good stable rim and then performed a microfracture using the arthroscopic power pick. [id number] position had to be maintained to allow for visualization of this defect. The arthroscope was switched to the medial portal to complete the procedure. We then drained the knee and used suction as well as multiple swabs to thoroughly dry out the lateral compartment we then attempted to bio cartilage defect however bio cartilage first attempt did not passed through the livery device, we then repeated this attempt with a second bio cartilage packet and due to the location of the lesion and fluid drainage into the cartilage graft right the graft became to fluid to form a stable construct. The knee was then thoroughly irrigated and cleaned medial and lateral gutters were inspected of loose bodies the patellofemoral joint was inspected which was free of significant cartilage wear. The knee was thoroughly irrigated and suture portals were closed with 3-0 nylon dressing was applied form of Xeroform 4 x 4 ABD web roll and Michel wrap all counts were correct patient was brought back to the PACU in stable condition she will be toe-touch weightbearing for 6 weeks.
[2020-04-20] MEDS: oxyCODONE 5 MG Tablet PO (18:01)
== END 2020-04-20 20:58 | disposition home or self-care (01) ==
LOC: SDC 09:43 → AC 09:47
PROVIDERS: Anesthesiology; PCP Internal Medicine; Referring Provider Orthopaedic Surgery; Visit Provider Orthopaedic Surgery
PROC: (CPT 29870; principal; 2020-04-20 11:55)
DX: S83.222D Peripheral tear of medial meniscus, current injury, left knee, subsequent encounter (principal); S83.262D Peripheral tear of lateral meniscus, current injury, left knee, subsequent encounter; M24.10 Other articular cartilage disorders, unspecified site; Z87.891 Personal history of nicotine dependence; K59.00 Constipation, unspecified; J32.9 Chronic sinusitis, unspecified; R01.1 Cardiac murmur, unspecified
CPT/HCPCS: 01400; 29881; 87426; 87635; C9803; J7120; A4216; J2405; U0002

== ENCOUNTER 2020-06-11 09:00 | Outpatient (RCR) | payer OTHER, SELFPAY ==
--- NOTE | 2020-05-17 12:03 | HP.PTEVAL_ITS ---
Patient's Visit Information CARLOS ALBERTO HERRERA is a 49 year old F referred to Physical Therapy by Dr. Jones Perkins DO with a diagnosis of L knee microfracture 04/20/20. Date of Evaluation: 05/17/20 Physical Therapist: Jaxson Duran, PT, ATC - Visit Plan Frequency: 2-3x /Week Duration: 4-6 Weeks Plan: L knee stretching and strengthening, balance and proprio, core stab ex's, nustep, and HEP. No weightbearing for 6 weeks. - Subjective DOS: 04/20/20. Pt rerports she had pain for a chronic period of time in her L knee. Pt reports after trying injections, she had surgery to decrease her pain. Pt reports she feels better now since having the surgery. No L LE tingling or numbness. Pt reports sleep difficulty at this time secondary to pain. Pt reports she has been performing AROM ex's with L LE since her DOS. 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 Pt reports she is limited with all activity secondary to pain. 0/10 pain at rest, 5/10 pain at worst (getting in and out of tub) - Pain L knee Pain Intensity (Out of 10): 0 Pain Intensity Range: 5 - Objective Neuro: B LE sensation is WNL to light touch. B achilles reflex= 2/3. Observation: Pt reports incisions are healed. No obvious signs of infection other than a mild rash from her applying Neosporin. Girth at joint line: R knee 39.5 cm, L knee 41.5 cm. ROM: R knee 0-130 degrees. L knee 0-10-110 degrees. MMT: R LE 5/5 throughout while L knee is 3/5 and painful - Goals Goal 1:: Decrease L knee pain x 50% to aid with sleep Goal Time Frame: 4-6 Weeks Goal 2:: Increase L knee ROM x 30 degrees to aid with restoring a normalized gait pattern Goal Time Frame: 4-6 Weeks Goal 3:: Increase L knee strength x 1 grade to aid with IADL's Goal Time Frame: 4-6 Weeks Goal 4:: I with HEP Goal Time Frame: 4-6 Weeks - Rehabilitation Potential Physical Therapy Diagnosis: L knee pain, weakness, and limited ROM secondary to L knee microfracture Rehabilitation Potential: Good - Anticipated Interventions Patient/Client Instruction: Educate patient on: Condition, Plan of Care For the Purpose of:: To improve self management Therapeutic Exercise to Include: Strength training, Endurance training, Balance training, Flexibilty training, Gait and locomotor training, Passive ROM, Active ROM, Dynamic Lumbar Stabilization For the Purpose of:: To decrease pain, To increase ROM, To improve muscle performance and motor function Cryotherapy (ice pack, ice massage): Yes For the Purpose of:: To decrease pain Thank you for the opportunity to evaluate your patient. For Medicare and Medicare HMO plans, please review the plan of care and approve it. It will need to be FAXED BACK to us at [phone] for Medicare purposes. For Medicare only, by signing this I certify the plan of care. Please let me know if there are questions or concerns regarding this plan of care. Physician Signature:__ Date:
--- NOTE | 2020-05-26 10:14 | HP.PTREVAL ---
Dr. Jones Perkins, DO, It has been my pleasure to treat CARLOS ALBERTO HERRERA over the last 5 visits for L knee microfracture 04/20/20. Please see the progress note below for an update on the physical therapy plan of care! Subjective: No pain currently Objective/Function: L knee pain is 0/10 at rest, 4/10 at worst. L knee ROM: 0-135. L knee MMT: flex= 5/5, ext= 3+/5 and painful. Pt is progressing well toward goals Plan Plan: L knee stretching and strengthening, balance and proprio, core stab ex's, nustep, and HEP. No weightbearing for 6 weeks. Goals Goal 1:: Decrease L knee pain x 50% to aid with sleep Goal Time Frame: 4-6 Weeks Goal Progress: Progressing Goal 2:: Increase L knee ROM x 30 degrees to aid with restoring a normalized gait pattern Goal Time Frame: 4-6 Weeks Goal Progress: Progressing Goal 3:: Increase L knee strength x 1 grade to aid with IADL's Goal Time Frame: 4-6 Weeks Goal Progress: Progressing Goal 4:: I with HEP Goal Time Frame: 4-6 Weeks Goal Progress: Progressing Anticipated Interventions Patient/Client Instruction: Educate patient on: Condition, Plan of Care For the Purpose of:: To improve self management Therapeutic Exercise to Include: Strength training, Endurance training, Balance training, Flexibilty training, Gait and locomotor training, Passive ROM, Active ROM, Dynamic Lumbar Stabilization For the Purpose of:: To decrease pain, To increase ROM, To improve muscle performance and motor function Cryotherapy (ice pack, ice massage): Yes For the Purpose of:: To decrease pain Please do not hesitate to contact me at [phone] by phone or if you have questions or concerns regarding this new plan of care! Sincerely, Jaxson Duran, PT, ATC
--- NOTE | 2020-06-11 09:36 | HP.PTDCSUM ---
It has been my pleasure to treat CARLOS ALBERTO HERRERA referred by Dr. Jones Perkins DO, with the diagnosis of L knee microfracture 04/20/20 for a total of 12 visit(s). Discharge Date: Please see the following information for a summary of their discharge status. Subjective: Pt reports she is ready to be discharged L knee Pain Intensity (Out of 10): 0 % Improvement: 95 Objective/Function: L knee pain is 0/10. L knee ROM: 0-140 degrees. L knee MMT: flex= 5/5, ext= 4-/5. Pt is I with HEP. Rx goals achieved Goal 1:: Decrease L knee pain x 50% to aid with sleep Goal Progress: Goal Met Goal 2:: Increase L knee ROM x 30 degrees to aid with restoring a normalized gait pattern Goal Progress: Goal Met Goal 3:: Increase L knee strength x 1 grade to aid with IADL's Goal Progress: Goal Met Goal 4:: I with HEP Goal Progress: Goal Met Plan: Discharge If there are questions or concerns regarding this patient's physical therapy, please feel free to call me at [phone]. Thank you for the referral of this patient. Sincerely, Jaxson Duran, PT, ATC
== END 2020-06-11 19:00 | disposition home or self-care (01) ==
LOC: PT 09:00
PROVIDERS: PCP Internal Medicine; Referring Provider Orthopaedic Surgery; Visit Provider Orthopaedic Surgery
DX: S83.412D Sprain of medial collateral ligament of left knee, subsequent encounter (principal)
CPT/HCPCS: 97110; 97161; 97164

== ENCOUNTER → 2020-06-16 13:56 | Outpatient (CLI) | payer OTHER, SELFPAY ==
[2020-04-20 10:09] VITALS: BMI 29.5
--- NOTE | 2020-06-16 13:58 | BI_ITS ---
MAMMOGRAPHY - BILATERAL SCREENING REASON FOR EXAM: Female, 49 years old. Routine annual screening examination. PERTINENT HISTORY: Aunt with breast cancer. TECHNIQUE: Digital bilateral breast laila (3D mammographic acquisition) in the CC and MLO projections. 2-D mediolateral oblique (MLO) and craniocaudad (CC) views of both breasts were obtained. CAD: Full Field Digital Mammography with Computer Added Detection was performed. COMPARISON: Comparison is made with prior examination dated 04/09/2019 and 05/01/2018. FINDINGS: Breast Composition: There are scattered areas of fibroglandular density. There are no dominant masses or suspicious calcifications. Stable 7.9 mm x 4 mm well-defined nodule in the upper deep lateral aspect of the left breast. This most likely represents a small lymph node. Stable benign appearing bilateral axillary nodes. No other significant abnormalities are identified. There has been no significant change since the prior study. BI/SCRN MAMM (CAD)W/LAILA BILAT IMPRESSION: Stable bilateral screening mammogram. Yearly follow-up mammogram recommended. (A) ASSESSMENT CATEGORY: BIRADS Category 2: Benign. A letter regarding these results will be sent to the patient by the facility within 30 days. Approximately 10% of breast cancers are not detected by mammography. A normal mammogram should not delay biopsy of a clinically suspicious abnormality. [id number] Electronically Signed: Neri Nur MD at 14:40 EST , Service support ,
== END ==
PROVIDERS: PCP Internal Medicine; Referring Provider Obstetrics & Gynecology; Visit Provider Obstetrics & Gynecology
DX: Z12.31 Encounter for screening mammogram for malignant neoplasm of breast (principal)
CPT/HCPCS: 77063; 77067

== ENCOUNTER → 2021-04-05 11:10 | Outpatient (CLI) | payer OTHER, SELFPAY | PROVIDERS: PCP Internal Medicine; Referring Provider Chiropractor; Visit Provider Chiropractor | DX: M99.01 Segmental and somatic dysfunction of cervical region (principal); G43.909 Migraine, unspecified, not intractable, without status migrainosus | CPT/HCPCS: 72040 ==

== ENCOUNTER 2021-04-23 16:00 | Outpatient (CLI) | payer OTHER, SELFPAY ==
[2021-04-23 16:05] VITALS: BP 113/75; PULSE 85; RESP 16; TEMP 36.9; O2SAT 99; BMI 26.6
[2021-04-23] MEDS: 0.9% Saline Lock 10 ML Syringe IV (16:07)
[2021-04-23 16:39] VITALS: BP 100/68; PULSE 98; RESP 16; TEMP 37.6; O2SAT 100
[2021-04-23 17:25] VITALS: BP 99/71; PULSE 68; RESP 16; TEMP 37.3; O2SAT 100
== END 2021-04-23 17:39 | disposition home or self-care (01) ==
LOC: MS3OUT 16:01 → MS3 16:01
PROVIDERS: PCP Internal Medicine; Referring Provider Nurse Practitioner Acute Care; Visit Provider Nurse Practitioner Acute Care
DX: Z23 Encounter for immunization (principal); U07.1 COVID-19
CPT/HCPCS: J7050; M0245; Q0245; A4216

== ENCOUNTER → 2021-05-17 15:26 | Outpatient (CLI) | payer OTHER, SELFPAY ==
--- NOTE | 2021-05-17 15:28 | RAD_ITS ---
EXAM: XR LEFT RIBS AND AP CHEST, 3 OR MORE VIEWS CLINICAL INDICATION: left rib pain, recent covid infection TECHNIQUE: Frontal and oblique views of the left ribs and frontal view of the chest. This report was created using [employer] report [employer] technology. COMPARISON: None. FINDINGS: LUNGS AND PLEURAL SPACES: Unremarkable. No consolidation or edema. No pneumothorax. No effusion. HEART: Unremarkable. Cardiac silhouette not enlarged. MEDIASTINUM: Central airways and mediastinal contour are unremarkable. BONES/JOINTS: Unremarkable. No evidence of displaced rib fractures. RAD/Ribs Uni Min 3V w/PA Chest IMPRESSION: Negative chest and left ribs series. Electronically Signed: Jaxson Johnson MD at 21:53 EST , Service support ,
== END ==
PROVIDERS: PCP Internal Medicine; Referring Provider Physician Assistant; Visit Provider Physician Assistant
DX: U07.1 COVID-19 (principal); R07.81 Pleurodynia
CPT/HCPCS: 71101

== ENCOUNTER 2021-06-20 13:57 | Outpatient (CLI) | payer OTHER, SELFPAY ==
[2021-06-20 14:56] LABS: Erythrocyte Sedimentation Rate 6 mm/hr (0-30)
[2021-06-20 15:21] LABS: ALB/GLOB Ratio 1.4 RATIO (0.9-2.4); AST(SGOT) 16 U/L (15-37); Alanine Aminotransfer ALT/SGPT 21 U/L (13-56); Albumin, Serum 4.4 g/dL (3.2-5.0); Alkaline Phosphatase 52 U/L (45-117); Anion Gap 5 (5-15); BUN 11 mg/dL (7-18); CRP < 2.90 mg/L (0.0-3.0); Calcium,Total 9.3 mg/dL (8.5-10.1); Chloride 108 mmol/L (98-107); Creatinine, Serum 0.69 mg/dL (0.55-1.02); EST Glomerular Filtration Rate 96 mL/min (>60); Est Glom Filt Rate - Afr Amer 117 mL/min (>60); Globulin 3.2 g/dL (2.2-4.2); Glucose 83 mg/dL (74-106); LDH 211 U/L (84-246); Potassium 3.4 mmol/L (3.5-5.1); Protein, Total 7.6 g/dL (6.4-8.2); Sodium Level 139 mmol/L (136-145)
[2021-06-22 13:07] LABS: Anti-Centromere B Ab <0.2 AI (0.0-0.9); Anti-Chromatin <0.2 AI (0.0-0.9); Anti-Jo <0.2 AI (0.0-0.9); Anti-Scleroderma-70 AB <0.2 AI (0.0-0.9); RNP Ab <0.2 AI (0.0-0.9); SJOGREN'S Anti-SS-A test < 0.2 AI (0.0-0.9); SJOGREN'S Anti-SS-B test < 0.2 AI (0.0-0.9); Smith Ab <0.2 AI (0.0-0.9)
[2021-06-22 14:59] LABS: Anti-dsDNA Ab <1 IU/mL (0-9)
[2021-06-24 17:07] LABS: Cytoplasmic Ab (C-ANCA) <1:20 titer (Neg:<1:20); Endomysial Antibody IgA Negative (Negative); Immunoglobulin A 91 mg/dL (87-352); Immunoglobulin E 5 IU/mL (6-495); Immunoglobulin G 860 mg/dL (586-1602)
[2021-06-24 19:08] LABS: Immunoglobulin M 84 mg/dL (26-217); Perinuclear Ab (P-ANCA) <1:20 titer (Neg:<1:20); t-Transglutaminase IgA <2 U/mL (0-3)
== END 2021-06-20 23:59 | disposition short-term general hospital (02) ==
LOC: LAB 13:59
PROVIDERS: PCP Internal Medicine; Referring Provider Internal Medicine Gastroenterology; Visit Provider Internal Medicine Gastroenterology
DX: R10.13 Epigastric pain (principal)
CPT/HCPCS: 80053; 82784; 82785; 83516; 83615; 85652; 86140; 86225; 86235; 86255; 86256

== ENCOUNTER 2021-06-28 12:40 | Outpatient (CLI) | payer OTHER, SELFPAY ==
--- NOTE | 2021-06-28 12:47 | NM_ITS ---
CLINICAL: 50-year-old female with reported history of abdominal pain. SEMI-SOLID PHASE 99m Tc SULFUR COLLOID GASTRIC EMPTYING STUDY COMPARISON: None available FINDINGS: The patient was administered 1.1 mCi of 99m Tc sulfur colloid mixed with oatmeal and consumed per os. Image acquisitions in the anterior-posterior projections for a total of 60 minutes. There is prompt visualization of the stomach. There is no gastroesophageal reflux identified. The T ? emptying was calculated to be 22.71 minutes, (Normal: 12-56 minutes). NM/Gastric Emptying Study IMPRESSION: 1. NORMAL 99m Tc sulfur colloid semi-solid phase (oatmeal) gastric emptying imaging examination. A. There is normal and preserved semi-solid phase gastric emptying compared to normal controls. (Satya et al, J Nucl Med Tech 38: 186, 2010). Electronically Signed: Toby Bay DO at 22:50 EST ,
== END 2021-06-28 23:59 | disposition home or self-care (01) ==
LOC: NM 12:40
PROVIDERS: PCP Internal Medicine; Referring Provider Internal Medicine Gastroenterology; Visit Provider Internal Medicine Gastroenterology
DX: K21.9 Gastro-esophageal reflux disease without esophagitis (principal); R10.9 Unspecified abdominal pain
CPT/HCPCS: 78264; A9541

== ENCOUNTER 2021-07-06 13:12 | Outpatient (CLI) | payer OTHER, SELFPAY ==
--- NOTE | 2021-07-06 13:19 | CT_ITS ---
STUDY: CT ABDOMEN AND PELVIS WITH CONTRAST REASON FOR EXAM: Female, 50 years old. Abdominal pain and hepatic cyst. Several month history of left upper quadrant pain. RADIATION DOSAGE (If Supplied By Facility): CTDIvol = ( 21.77 ) mGy, DLP = ( 665.99 ) mGycm TECHNIQUE: Transaxial images were obtained from the dome of the diaphragm to the symphysis pubis with oral contrast. IV 100mL Isovue-370 ORAL Readi-CAT was administered. Sagittal and coronal images were reconstructed. Individualized dose optimization techniques were used for this CT. COMPARISON: Comparison is made with prior ultrasound of the abdomen dated 02/14/2018. FINDINGS: The visualized lung bases are unremarkable. The visualized portions of the heart are within normal limits. There is a 4.2 mm cyst in the posterolateral aspect of the right lobe of the liver. There is a 2 cm x 1.5 cm cyst in the posterior aspect of the left lobe of the liver. Normal gallbladder and extrahepatic biliary system. Normal spleen. Normal pancreas. Normal bilateral adrenal glands. Normal right kidney. Normal left kidney. Normal visualized stomach. Normal small intestine. There are scattered colonic diverticula consistent with diverticulosis. The appendix is visualized and appears normal. Normal abdominal aorta. Normal inferior vena cava. Normal retroperitoneum. Normal urinary bladder. There is a 2 cm cyst in the left ovary. The patient is status post hysterectomy. There is a small umbilical hernia containing fat. Disc space narrowing and spondylosis at the L5-S1 level. CT/Abdomen/Pelvis WITH Contrast IMPRESSION: Small cyst in the right and left lobes of the liver. 2 cm cyst in the left ovary. Electronically Signed: Neri Nur MD at 15:03 EST ,
== END 2021-07-06 23:59 | disposition home or self-care (01) ==
LOC: CT 13:15
PROVIDERS: PCP Internal Medicine; Referring Provider Internal Medicine Gastroenterology; Visit Provider Internal Medicine Gastroenterology
DX: R10.13 Epigastric pain (principal); K21.9 Gastro-esophageal reflux disease without esophagitis; K76.89 Other specified diseases of liver
CPT/HCPCS: 74177; Q9967

== ENCOUNTER 2021-07-12 08:50 | Outpatient (CLI) | payer OTHER, SELFPAY ==
--- NOTE | 2021-07-12 09:03 | RAD_ITS ---
STUDY: X-RAY - ABDOMEN/PELVIS REASON FOR EXAM: Female, 50 years old. Bowel motility study TECHNIQUE: Single AP view of the abdomen / pelvis. COMPARISON: None. FINDINGS: Patient has ingested multiple Sitz markers. These are located in the descending and sigmoid colon. There is a moderate amount of colonic fecal material. There is no demonstrated free abdominal air. The visualized liver, spleen and kidneys are grossly normal in size and morphology. Normal soft tissue structures. Normal visualized osseous structures. RAD/Abdomen Single View IMPRESSION: Multiple Sitz markers noted in the descending and sigmoid colon Moderate retained stool No acute findings Electronically Signed: Saúl Bonner MD at 15:24 EST ,
== END 2021-07-12 23:59 | disposition home or self-care (01) ==
LOC: RAD 08:51
PROVIDERS: PCP Internal Medicine; Referring Provider Internal Medicine Gastroenterology; Visit Provider Internal Medicine Gastroenterology
DX: R10.13 Epigastric pain (principal)
CPT/HCPCS: 74018

== ENCOUNTER 2021-07-14 09:48 | Outpatient (CLI) | payer OTHER, SELFPAY ==
--- NOTE | 2021-07-14 09:53 | RAD_ITS ---
EXAM: XR Abdomen, 1 View CLINICAL INDICATION: 50 years old, Female; sitz marker day 5 TECHNIQUE: Frontal supine view of the abdomen/pelvis. This report was created using [employer] report generation technology. COMPARISON: None. FINDINGS: Lower thorax: No acute pathology. Gastrointestinal tract: Unremarkable. Normal bowel gas pattern. Organs: Unremarkable as visualized. No organomegaly. No abnormal calcifications. Bones/joints: No acute pathology. Soft tissues: No acute pathology. RAD/Abdomen Single View IMPRESSION: Non-obstructive bowel gas pattern. No residual Sitz markers identified. Electronically Signed: Lauri Mann MD at 7:52 EST ,
== END 2021-07-14 23:59 | disposition home or self-care (01) ==
LOC: RAD 09:49
PROVIDERS: PCP Internal Medicine; Referring Provider Internal Medicine Gastroenterology; Visit Provider Internal Medicine Gastroenterology
DX: K59.09 Other constipation (principal)
CPT/HCPCS: 74018

== ENCOUNTER 2021-07-19 13:52 | Outpatient (CLI) | payer OTHER, SELFPAY ==
--- NOTE | 2021-07-19 13:55 | BI_ITS ---
MAMMOGRAPHY - BILATERAL SCREENING REASON FOR EXAM: Female, 50 years old. Routine annual screening examination. PERTINENT HISTORY: Aunt with breast cancer. TECHNIQUE: Digital bilateral breast laila (3D mammographic acquisition) in the CC and MLO projections. 2-D mediolateral oblique (MLO) and craniocaudad (CC) views of both breasts were obtained. CAD: Full Field Digital Mammography with Computer Added Detection was performed. COMPARISON: Comparison is made with prior study dated 06/16/2020 and 04/09/2019. FINDINGS: Breast Composition: There are scattered areas of fibroglandular density. There are no dominant masses or suspicious calcifications. Stable 7.9 mm x 4 mm well-defined nodule in the upper deep lateral aspect of the left breast. No other significant abnormalities are identified. There has been no significant change since the prior study. BI/SCRN MAMM (CAD)W/LAILA BILAT IMPRESSION: Stable bilateral screening mammogram. Yearly follow-up mammogram recommended. (A) ASSESSMENT CATEGORY: BIRADS Category 2: Benign. A letter regarding these results will be sent to the patient by the facility within 30 days. Approximately 10% of breast cancers are not detected by mammography. A normal mammogram should not delay biopsy of a clinically suspicious abnormality. [id number] Electronically Signed: Neri Nur MD at 15:12 EST ,
== END 2021-07-19 23:59 | disposition home or self-care (01) ==
LOC: OPBI 13:53
PROVIDERS: PCP Internal Medicine; Visit Provider Obstetrics & Gynecology
DX: Z12.31 Encounter for screening mammogram for malignant neoplasm of breast (principal); Z80.3 Family history of malignant neoplasm of breast
CPT/HCPCS: 77063; 77067

== ENCOUNTER 2021-08-10 14:58 | Outpatient (CLI) | payer OTHER, SELFPAY | END 2021-08-10 23:59 | disposition home or self-care (01) | PROVIDERS: PCP Internal Medicine; Visit Provider Obstetrics & Gynecology | DX: N77.1 Vaginitis, vulvitis and vulvovaginitis in diseases classified elsewhere (principal) ==

== ENCOUNTER → 2022-02-09 | Outpatient (CLI) | payer OTHER, SELFPAY ==
--- NOTE | 2022-02-09 15:25 | RAD_ITS ---
STUDY: X-RAY - LUMBAR SPINE REASON FOR EXAM: Female, 51 years old. Back pain. TECHNIQUE: view(s) of the lumbar spine were obtained. COMPARISON: None FINDINGS: Normal lumbar lordosis. There is no substantial scoliosis. There is a normal alignment of the vertebrae. Mild diffuse facet sclerosis. Intervertebral disc space narrowing at L3-4, L4-5 intervertebral disc to agree L5-S1 with small osteophytes. The soft tissue structures are unremarkable. RAD/L/S Spine Min 4 Views IMPRESSION: Lower lumbosacral spondylosis. No acute abnormality, evidence of erosive changes or fusion. Electronically Signed: Myles Haque, at 9:15 EDT ,
== END | disposition home or self-care (01) ==
LOC: MTRAD 15:04
PROVIDERS: PCP Internal Medicine; Referring Provider Chiropractor; Visit Provider Chiropractor
DX: M99.03 Segmental and somatic dysfunction of lumbar region (principal); M54.9 Dorsalgia, unspecified
CPT/HCPCS: 72110

== ENCOUNTER 2022-03-01 05:14 | Day surgery (SDC) | payer OTHER, SELFPAY ==
[2022-03-01] VITALS (7 sets, daily range): BP systolic 84–94; BP diastolic 52–68; PULSE 58–73; RESP 18; TEMP 36.3–36.7; O2SAT 95–100; BMI 22.5
[2022-03-01] MEDS: Lactated Ringers 1,000 ML 15 ML IV (05:58)
--- NOTE | 2022-03-01 06:30 | COLBX_PTH ---
PATIENT: CARLOS ALBERTO RAO LOC: EN U#:[id number] AGE/SX: 51/F ROOM: RE03/01/[address]: Dr. Silverio Mantilla DO : 1970 BED: DIS: 03/01/2022 SPEC #: [id number] RECD: 03/01/22 08:52 STATUS: KARIN NATHAN #: [id number] ANNA: 03/01/22 06:[address]: Silverio Mantilla DEPT: SURGICAL PATHOLOGY RECD BY: Jerson Dunlap ENTERED: 03/01/22 09:34 SP TYPE: COLON BX OTHR DR: Dr. Jason Garner MD Tissues: Sigmoid colon biopsy Procedures: Surgery Specimen Level IV HEADER OPERATION: Colonoscopy (MAC), polypectomy PRE-OP DIAGNOSIS: Chronic constipation, tubulovillous adenoma of colon TISSUE SUBMITTED: Polypectomy site sigmoid colon biopsy MICROSCOPIC DIAGNOSIS Polypectomy site, sigmoid colon, biopsy: Fragments of colonic mucosa, no pathologic diagnosis. CATHERINE:odell 03/02/2022 COMMENT Please make reference to previous specimen ([id number]), sigmoid colon polyp, biopsy with diagnosis of ?tubulovillous adenoma with focal high-grade dysplasia.? MICROSCOPIC DESCRIPTION Slides are reviewed. GROSS DESCRIPTION Received in fixative is one container labeled with the patient's name and designated polypectomy site sigmoid colon biopsy. The specimen consists of multiple irregular fragments of light cisneros soft tissue that in aggregate measure 1 x 0.5 x 0.1 cm. The specimen is totally submitted in one cassette. / CATHERINE:odell 03/01/2022 TC:4 CPT: 64005
--- NOTE | 2022-03-01 06:38 | PCM.HP.BLA ---
History and Physical Date of Admission: 03/01/22 CARLOS ALBERTO HERRERA, is a 50 F who presents to the office today for f/u chronic idiopathic constipation with slow transit constipation.?At her last visit 2 months ago she was started on a different bowel regimen with the use of Mineral oil, olive oil and orange juice.?She reports she is doing great--having a daily BM, sometimes even 2 BMs. No longer has abdominal pain or bloating. No heartburn since losing weight. She has lost 40 lbs in the past year intentionally, changed her diet and is exercising. She feels great. No nausea, vomiting, dysphagia. No melena or hematochezia. No diarrhea. Chronic idiopathic constipation -- her sitz marker tests did not show any signs of pelvic floor dysfunction.? She tried and failed lactulose, linzess, trulance. On colonoscopy in 2018 she had a sigmoid colon polyp: Tubulovillous adenoma with very focal high grade dysplasia. Repeat colonoscopy in 2018 was negative. EGD performed 02.08.18 for heartburn finding duodenitis. H. Pylori negative. Biopsy found gastritis. Biochemical workup . ESR, LDH, CRP, IgA, IgG, IgM, ANCA, celiac profile, SHERRIE comp all WNL. IgE low 5, potassium low 3.4, chloride elevated 108. Gastric emptying study 2.. in normal range at 22.71 minutes (normal 12-56). CT abd/pel 2. finding 4.2mm cyst in posterolateral aspect of right lobe of liver and 2cmx1.5cm cyst in posterior aspect of left liver lobe. 2cm cyst in left ovary. Small umbilical hernia containing fat. KUB sitz markers 2..22 Day three found 23 remaining rings in the left colon and pelvic regions. Day five found no remaining rings. ROS Const Constitutional: No fatigue ENT ENT: No difficulty swallowing Gastro GI: No abdominal pain, belching, bloating, change in bowel habits, change in stool character, coffee ground emesis, constipation, cramping, diarrhea, heartburn, difficulty swallowing, feeling full early, excessive flatus, incontinent of stools, Vomiting blood/hematemesis, Blood in stool, loose stools, Black,tarry stools, nausea/dyspepsia, pain with swallowing, vomiting or other Musc Musculoskeletal: No joint pain Skin Skin: No yellowing of the eye or itchy eyes Psych Psychiatric: No anxiety and No depression Endo Endocrine: No fatigue Aller/Imm Allergy/Immunologic: No itchy eyes Chance/Lymp Hematologic/Lymphatic: No easy bleeding or easy bruising Exam Const General: cooperative, healthy appearing, no acute distress and well developed Nutritional Appearance: average body habitus Eyes General: appearance normal, both eyes and all related structures Quality Reporting Tobacco Screening ([facility] 138) Smoking Status: Former smoker Assessment and Plan Assessment and Plan (1) Chronic constipation: ?Status:?Chronic ?Plan: Very well managed now with daily mix of miralax, orange juice and olive oil. Continue that regimen. (2) Tubulovillous adenoma of colon: ?Status:?Acute ?Plan: 3 yrs ago with high grade dysplasia; will schedule colonoscopy with Dr Mantilla f/u 2 wks later for discussion of results. I have re-examined the patient. There are no clinical changes since date of exam.
--- NOTE | 2022-03-01 07:09 | OP.COLON_ITS ---
Patient Name: Danielle Carlton Procedure Date: 03/01/2022 6:29 AM Date of : 1970 Age: 51 Procedure: Colonoscopy Indications: Surveillance: Personal history of adenomatous polyps on last colonoscopy 3 years ago Providers: DO Korey Mancuso MD: Jason Garner MD Medicines: Monitored Anesthesia Care Patient Profile: Last Colonoscopy: 3 years ago. Complications: No immediate complications. Procedure: Pre-Anesthesia Assessment: - Prior to the procedure, a History and Physical was performed, and patient medications and allergies were reviewed. The risks and benefits of the procedure and the sedation options and risks were discussed with the patient. All questions were answered and informed consent was obtained. Patient identification and proposed procedure were verified by the physician in the pre-procedure area. Mental Status Examination: alert and oriented. Airway Examination: normal oropharyngeal airway and neck mobility. Respiratory Examination: clear to auscultation. CV Examination: normal. Prophylactic Antibiotics: The patient does not require prophylactic antibiotics. Prior Anticoagulants: The patient has taken no previous anticoagulant or antiplatelet agents. ASA Grade Assessment: II - A patient with mild systemic disease. After reviewing the risks and benefits, the patient was deemed in satisfactory condition to undergo the procedure. The anesthesia plan was to use monitored anesthesia care (MAC). Immediately prior to administration of medications, the patient was re-assessed for adequacy to receive sedatives. The heart rate, respiratory rate, oxygen saturations, blood pressure, adequacy of pulmonary ventilation, and response to care were monitored throughout the procedure. The physical status of the patient was re-assessed after the procedure. After I obtained informed consent, the scope was passed under direct vision. Throughout the procedure, the patient's blood pressure, pulse, and oxygen saturations were monitored continuously. The colonoscope was introduced through the anus and advanced to the cecum, identified by appendiceal orifice and ileocecal valve. The colonoscopy was performed without difficulty. The patient tolerated the procedure well. The quality of the bowel preparation was good. Scope In: 6:44:00 AM Scope Withdrawal Time 0 hours 8 minutes 33 seconds Scope Out: 7:01:24 AM Total Procedure Duration Time 0 hours 17 minutes 24 seconds Findings: The perianal and digital rectal examinations were normal. A few small-mouthed diverticula were found in the recto-sigmoid colon and sigmoid colon. A 5 mm post polypectomy scar was found in the sigmoid colon. There was no evidence of the previous polyp. Biopsies were taken with a cold forceps for histology. Verification of patient identification for the specimen was done. Estimated blood loss was minimal. Impression: - Diverticulosis in the recto-sigmoid colon and in the sigmoid colon. - Post-polypectomy scar in the sigmoid colon. Biopsied. Recommendation: - Discharge patient to home. - Resume previous diet. - Continue present medications. - Await pathology results. - Repeat colonoscopy in 5 years for surveillance. Procedure Code(s): --- Professional --- 39565, Colonoscopy, flexible; with biopsy, single or multiple CPT copyright 2017 [employer]. All rights reserved. The codes documented in this report are preliminary and upon medical specialist review may be revised to meet current compliance requirements. Silverio Mantilla DO 03/01/2022 7:08:40 AM This report has been signed electronically. Number of Addenda: 0 Note Initiated On: 03/01/2022 6:29 AM
--- NOTE | 2022-03-01 07:10 | OP.CCLET_ITS ---
03/01/2022 Jason Garner MD [address] [place] [address] [place] [address] Re : Colonoscopy procedure for Danielle Carlton Dear Dr. Garner This procedure was performed on Tuesday, March 01, 2022. My impressions and recommendations are as follows: Impressions : - Diverticulosis in the recto-sigmoid colon and in the sigmoid colon. - Post-polypectomy scar in the sigmoid colon. Biopsied. Recommendations : - Discharge patient to home. - Resume previous diet. - Continue present medications. - Await pathology results. - Repeat colonoscopy in 5 years for surveillance. My findings are described in the full procedure note, which is enclosed. If I can be of further assistance, please feel free to contact me at . Sincerely, Silverio Mantilla, 03/01/2022 7:08:40 AM This report has been signed electronically.
== END 2022-03-01 08:07 | disposition home or self-care (01) ==
LOC: EN 05:15 → AC 05:16
PROVIDERS: PCP Internal Medicine; Referring Provider Internal Medicine; Visit Provider Internal Medicine Gastroenterology
PROC: 0DJD8ZZ Inspection of Lower Intestinal Tract, Via Natural or Artificial Opening Endoscopic (ICD-10-PCS; CPT 45378; principal; 2022-03-01 06:25)
DX: K57.30 Diverticulosis of large intestine without perforation or abscess without bleeding (principal); Z87.891 Personal history of nicotine dependence; D12.6 Benign neoplasm of colon, unspecified; K59.04 Chronic idiopathic constipation
CPT/HCPCS: 45380; 88305; J7120; J2405

== ENCOUNTER → 2022-06-29 | Outpatient (CLI) | payer OTHER, SELFPAY ==
--- NOTE | 2022-06-29 09:57 | RAD_ITS ---
STUDY: X-RAY - FACIAL BONES REASON FOR STUDY: Female, 51 years old. Fall TECHNIQUE: 3 view(s) of the facial bones. COMPARISON: None. FINDINGS: Normal bilateral frontozygomatic and zygomatic-temporal arches. Normal bilateral medial and inferior orbital hirsch. Normal bilateral orbits. Normal visualized nasal bones. Normal anterior nasal spine. The remaining visualized osseous structures are normal. Normal visualized paranasal sinuses. RAD/Facial Bones min 3 Views IMPRESSION: Normal x-ray examination of the facial bones. Electronically Signed: Neri Nur MD at 10:36 EST ,
== END | disposition home or self-care (01) ==
LOC: MTRAD 09:57
PROVIDERS: PCP Internal Medicine; Referring Provider Physician Assistant; Visit Provider Physician Assistant
DX: S00.83XA Contusion of other part of head, initial encounter (principal)
CPT/HCPCS: 70150

== ENCOUNTER → 2022-09-07 | Outpatient (CLI) | payer OTHER, SELFPAY ==
--- NOTE | 2022-09-07 13:58 | BI_ITS ---
MAMMOGRAPHY - BILATERAL SCREENING REASON FOR EXAM: Female, 51 years old. Routine annual screening examination. PERTINENT HISTORY: Aunt with breast cancer. TECHNIQUE: Digital bilateral breast laila (3D mammographic acquisition) in the CC and MLO projections. 2-D mediolateral oblique (MLO) and craniocaudad (CC) views of both breasts were obtained. CAD: Full Field Digital Mammography with Computer Added Detection was performed. COMPARISON: Comparison is made with prior study dated July 19, 2021 and June 16, 2020. FINDINGS: Breast Composition: There are scattered areas of fibroglandular density. There are no dominant masses or suspicious calcifications. Stable 7 mm well-defined nodule in the upper lateral aspect of the left breast most likely representing a small cyst or lymph node. No other significant abnormalities are identified. There has been no significant change since the prior study. BI/SCRN MAMM (CAD)W/LAILA BILAT IMPRESSION: Stable bilateral screening mammogram. Yearly follow-up mammogram recommended. (A) ASSESSMENT CATEGORY: BIRADS Category 2: Benign. A letter regarding these results will be sent to the patient by the facility within 30 days. Approximately 10% of breast cancers are not detected by mammography. A normal mammogram should not delay biopsy of a clinically suspicious abnormality. [id number] Electronically Signed: Neri Nur MD at 14:55 EDT ,
== END | disposition home or self-care (01) ==
LOC: OPBI 13:57
PROVIDERS: PCP Internal Medicine; Referring Provider Student in an Organized Health Care Education/Training Program; Visit Provider Student in an Organized Health Care Education/Training Program
DX: Z12.31 Encounter for screening mammogram for malignant neoplasm of breast (principal); Z80.3 Family history of malignant neoplasm of breast
CPT/HCPCS: 77063; 77067

== ENCOUNTER → 2023-10-24 | Outpatient (CLI) | payer OTHER, SELFPAY ==
--- NOTE | 2023-10-24 08:56 | ECHOD_ITS ---
Reason For Study: Family Hx of Bicuspid AV Procedure This was a 2D Doppler, Color Flow transthoracic echocardiogram. Exam performed in department. Left Ventricle Normal LV size. Left ventricular systolic function is normal. The estimated ejection fraction is 55 %. No regional wall motion abnormalities noted. Right Ventricle Normal RV size. Normal systolic function. Atria Normal left atrium. Normal right atrium. Mitral Valve Normal mitral valve. Mild (1+) mitral valve insufficiency. Tricuspid Valve Normal tricuspid valve. Mild tricuspid valve insufficiency. Pulmonary artery systolic pressure is 22 mmHg. Aortic Valve Bicuspid aortic valve. Mild (1+) aortic valve insufficiency. Pulmonic Valve Normal pulmonic valve. Great Vessels Mild to moderately dilated aortic root. The pulmonary artery is normal size. Inferior vena cava collapse with respiration. Pericardium/Pleural No pericardial effusion. MMode/2D Measurements & Calculations LVIDd: 4.9 cm IVSd: 0.80 cm LVOT diam: 2.5 cm LVIDs: 3.1 cm LVPWd: 0.87 cm LVOT area: 5.0 cm2 RVDd: 4.0 cm FS: 37.4 % Ao root diam: 4.2 cm LAV(MOD-bp): 37.6 ml LVAd ap4: 28.3 cm2 LAV(MOD-bp) Indexed: 21.0 ml/m2 LVLd ap4: 7.4 cm LAV(MOD-sp2): 51.8 ml EDV(MOD-sp4): 89.3 ml LAV(MOD-sp4): 27.1 ml EDV(sp4-el): 92.2 ml LVAs ap4: 14.1 cm2 LVLs ap4: 5.8 cm ESV(MOD-sp4): 28.1 ml ESV(sp4-el): 29.2 ml EF(MOD-sp4): 68.5 % EF(sp4-el): 68.3 % SV(MOD-sp4): 61.1 ml SV(sp4-el): 63.0 ml LA A4 area: 13.1 cm2 LA dimension(2D): 3.2 cm RA A4 area: 14.7 cm2 TAPSE: 2.3 cm Time Measurements MV dec time: 0.24 sec Doppler Measurements & Calculations MV E max oli: 83.7 cm/sec Lat Peak E' Oli: 10.4 cm/sec Med Peak E' Oli: 8.2 cm/sec MV A max oli: 44.0 cm/sec E/E' lat: 8.1 E/E' med: 10.3 MV E/A: 1.9 Ao V2 max: 134.3 cm/sec AI max oli: 395.6 cm/sec MV dec slope: 348.2 cm/sec2 Ao max P.2 mmHg AI max P.6 mmHg Ao V2 mean: 93.3 cm/sec Ao mean P.7 mmHg AI dec slope: 132.2 cm/sec2 Ao V2 VTI: 32.7 cm AI P1/2t: 876.3 msec AV (velocity ratio): 0.75 LORENZO(I,D): 3.8 cm2 LORENZO(V,D): 3.5 cm2 LV V1 max: 95.0 cm/sec SV(LVOT): 122.9 ml PA V2 max: 55.8 cm/sec LV V1 max P.6 mmHg LV V1 mean P.9 mmHg LV V1 mean: 64.5 cm/sec LV V1 VTI: 24.5 cm TR max oli: 212.4 cm/sec TR max P.1 mmHg ECHO/Echo Complete Interpretation Summary Normal LV size. Left ventricular systolic function is normal. The estimated ejection fraction is 55 %. Mild (1+) mitral valve insufficiency. Bicuspid aortic valve. Mild (1+) aortic valve insufficiency. Mild to moderately dilated aortic root. Ordering Physician: Jason Garner Referring Physician: Jason Garner Performed By: Hazel Goff, EDILMA, RVT
--- NOTE | 2023-10-24 13:42 | BI_ITS ---
MAMMOGRAPHY - BILATERAL SCREENING REASON FOR EXAM: Female, 52 years old. Routine annual screening examination. PERTINENT HISTORY: Aunt with breast cancer. TECHNIQUE: Digital bilateral breast laila (3D mammographic acquisition) in the CC and MLO projections. 2-D mediolateral oblique (MLO) and craniocaudad (CC) views of both breasts were obtained. CAD: Full Field Digital Mammography with Computer Added Detection was performed. COMPARISON: Comparison is made with prior study dated September 07, 2022 and July 19, 2021. FINDINGS: Breast Composition: There are scattered areas of fibroglandular density. There are no dominant masses or suspicious calcifications. Stable 7 mm well-defined nodule in the upper lateral aspect of the left breast suggestive of a small lymph node or cyst. No other significant abnormalities are identified. There has been no significant change since the prior study. BI/SCRN MAMM (CAD)W/LAILA BILAT IMPRESSION: Stable bilateral screening mammogram. Yearly follow-up mammogram recommended. (A) ASSESSMENT CATEGORY: BIRADS Category 2: Benign. A letter regarding these results will be sent to the patient by the facility within 30 days. Approximately 10% of breast cancers are not detected by mammography. A normal mammogram should not delay biopsy of a clinically suspicious abnormality. [id number] Electronically Signed: Neri Nur MD at 14:43 EDT ,
== END | disposition home or self-care (01) ==
PROVIDERS: PCP Internal Medicine; Referring Provider Internal Medicine; Visit Provider Internal Medicine
DX: Z12.31 Encounter for screening mammogram for malignant neoplasm of breast (principal); Z82.79 Family history of other congenital malformations, deformations and chromosomal abnormalities
CPT/HCPCS: 77063; 77067; 93306

== ENCOUNTER → 2023-10-26 | Outpatient (CLI) | payer OTHER, SELFPAY ==
--- NOTE | 2023-10-26 11:31 | CT_ITS ---
STUDY: CT ABDOMEN AND PELVIS WITH CONTRAST REASON FOR EXAM: Female, 52 years old. Right Groin Pain x 1 month RADIATION DOSAGE (If Supplied By Facility): CTDIvol = ( 10.29 ) mGy, DLP = ( 434.74 ) mGycm TECHNIQUE: Transaxial images were obtained from the dome of the diaphragm to the symphysis pubis with oral contrast. Oral and amp; IV Gastrografin and amp; 100mL Isovue-300 was administered. Sagittal and coronal images were reconstructed. Individualized dose optimization techniques were used for this CT. COMPARISON: Comparison is made with prior study dated July 06, 2021. FINDINGS: The visualized lung bases are unremarkable. The visualized portions of the heart are within normal limits. There is a 2.5 cm cyst in the medial posterior aspect of the left lobe of the liver. Tiny cyst in the posterolateral aspect of the inferior aspect of the right lobe of the liver. This is unchanged. Normal gallbladder and extrahepatic biliary system. Normal spleen. Normal pancreas. Normal bilateral adrenal glands. Normal right kidney. Normal left kidney. Normal visualized stomach. Normal small intestine. There are scattered colonic diverticula consistent with diverticulosis. There is non-visualization of the appendix. Normal abdominal aorta. Normal inferior vena cava. Normal retroperitoneum. Normal urinary bladder. There is absence of the uterus consistent with a prior hysterectomy. Small benign-appearing lymph nodes are seen in both groins. The space narrowing at the L4-L5 and L5-S1 levels. CT/Abdomen/Pelvis WITH Contrast IMPRESSION: Stable cysts in the liver. Electronically Signed: Neri Nur MD at 14:52 EDT ,
== END | disposition home or self-care (01) ==
LOC: CT 11:30
PROVIDERS: PCP Internal Medicine; Referring Provider Internal Medicine; Visit Provider Internal Medicine
DX: R10.31 Right lower quadrant pain (principal)
CPT/HCPCS: 74177; Q9967

== ENCOUNTER → 2023-11-28 | Outpatient (CLI) | payer OTHER, SELFPAY ==
[2023-11-28 15:49] LABS: Anion Gap 5 (5-15); BUN 21 mg/dL (7-18); BUN/Creat Ratio 33.5 RATIO (10-20); Calcium,Total 9.6 mg/dL (8.5-10.1); Chloride 107 mmol/L (98-107); Creatinine, Serum 0.63 mg/dL (0.55-1.02); EST Glomerular Filtration Rate 106 mL/min (>60); Est Glom Filt Rate - Afr Amer 129 mL/min (>60); Glucose 99 mg/dL (74-106); Potassium 3.8 mmol/L (3.5-5.1); Sodium Level 139 mmol/L (136-145)
== END | disposition home or self-care (01) ==
LOC: LAB 14:46
PROVIDERS: PCP Internal Medicine; Referring Provider Internal Medicine Cardiovascular Disease; Visit Provider Internal Medicine Cardiovascular Disease
DX: Q23.1 Congenital insufficiency of aortic valve (principal)
CPT/HCPCS: 36415; 80048

== ENCOUNTER → 2023-12-13 | Outpatient (CLI) | payer OTHER, SELFPAY ==
--- NOTE | 2023-12-13 13:54 | CT_ITS ---
STUDY: CTA CHEST REASON FOR EXAM: Female, 52 years old. Dilated root RADIATION DOSAGE (If Supplied By Facility): CTDIvol = ( 6.45 ) mGy, DLP = ( 217.45 ) mGycm TECHNIQUE: The examination was performed with the intravenous administration of IV 100mL Isovue-370. Post-processing of the angiographic images was performed, with multiplanar reformation and 3D reconstruction. Individualized dose optimization techniques were used for this CT. COMPARISON: None. FINDINGS: Normal enhancement of the main pulmonary artery and right and left pulmonary arteries. Normal enhancement of the bilateral peripheral pulmonary arteries. There is no demonstrated pulmonary embolism. There is aneurysmal dilatation of the ascending aorta. The transverse diameter of the ascending aorta measures 44.5 mm''s. There is no demonstrated aortic dissection. Normal heart and pericardium. Normal mediastinum. Normal hilar regions. Normal visualized trachea and bronchi. The lungs are well expanded. Normal pulmonary parenchyma. Normal pleura. Normal chest wall structures. Normal osseous structures. There is a 2.5 cm cyst in the superior aspect of the left lobe of the liver. CT/CTA Chest W/WO Contrast IMPRESSION: There is dilatation of the root of the ascending thoracic aorta measuring 44.5 mm. Electronically Signed: Neri Nur MD at 14:50 EDT ,
== END | disposition home or self-care (01) ==
PROVIDERS: PCP Internal Medicine; Referring Provider Internal Medicine Cardiovascular Disease; Visit Provider Internal Medicine Cardiovascular Disease
DX: I77.810 Thoracic aortic ectasia (principal); Q23.1 Congenital insufficiency of aortic valve
CPT/HCPCS: 71275; Q9967

== ENCOUNTER 2023-12-19 08:42 | Outpatient (CLI) | payer OTHER, SELFPAY ==
--- NOTE | 2023-12-19 08:47 | ECHOTEE_ITS ---
Reason For Study: Bicuspid AV Medication KENDRA probe 6VT-D (SN [id number]) passed without difficulty. No complications were noted. Versed 2 mg given slow IVP. Fentanyl 50 mcg given slow IVP. Cetacaine Topical [place] given X3 orally. Left Ventricle Normal LV size. Left ventricular systolic function is normal. The left ventricular ejection fraction is 60 %. No regional wall motion abnormalities noted. Right Ventricle Normal RV size. Normal systolic function. Atria Normal atrial septum. Normal left atrium. Normal right atrium. Mitral Valve Normal mitral valve. Tricuspid Valve Normal tricuspid valve. Aortic Valve Bicuspid aortic valve. Mild (1+) aortic valve insufficiency. Pulmonic Valve Normal pulmonic valve. Vessels Mild to moderately dilated aortic root. Normal arch. The pulmonary artery is normal size. Pulmonary venous flow normal. Pericardium No pericardial effusion. ECHO/Echo Transesophageal (KENDRA) Interpretation Summary Normal LV size. Left ventricular systolic function is normal. The left ventricular ejection fraction is 60 %. Bicuspid aortic valve. Mild (1+) aortic valve insufficiency. Mild to moderately dilated aortic root. Ordering Physician: Gary Last Referring Physician: Jason Garner Performed By: Hazel Goff, RDCS, RVT
== END 2023-12-19 11:35 | disposition home or self-care (01) ==
PROVIDERS: PCP Internal Medicine; Referring Provider Internal Medicine Cardiovascular Disease; Visit Provider Internal Medicine Cardiovascular Disease
DX: I35.1 Nonrheumatic aortic (valve) insufficiency (principal)
CPT/HCPCS: 93312; 93320; 93325; J7040; A4216

== ENCOUNTER 2024-02-06 16:02 | Emergency (ER) | payer OTHER, SELFPAY ==
[2024-02-06] VITALS (8 sets, daily range): BP systolic 107–121; BP diastolic 62–83; PULSE 71–93; RESP 11–24; TEMP 36.6–36.7; O2SAT 95–100; BMI 25.5
--- NOTE | 2024-02-06 16:56 | EKG12_ITS ---
Test Reason : CP Blood Pressure : / mmHG Vent. Rate : 112 BPM Atrial Rate : 112 BPM P-R Int : 168 ms QRS Dur : 086 ms QT Int : 330 ms P-R-T Axes : 055 063 047 degrees QTc Int : 450 ms Sinus tachycardia Nonspecific ST abnormality Abnormal ECG Baseline artifact Confirmed by Shlomo Koo ([id number]), scientific publications editor COLIN HALL ([id number]) on 02/11/2024 10:41:22 AM Referred By: Confirmed By:Shlomo Koo
--- NOTE | 2024-02-06 17:11 | CT_ITS ---
STUDY: CT BRAIN WITHOUT CONTRAST REASON FOR EXAM: Female, 53 years old. injury RADIATION DOSAGE (If Supplied By Facility): CTDIvol = ( 44.99 ) mGy, DLP = ( 863.60 ) mGycm TECHNIQUE: Transaxial CT imaging of the brain was performed without administration of intravenous contrast material. Individualized dose optimization techniques were used for this CT. The protocol utilizes one or more of the following dose reduction techniques: automated exposure control, adjustment of mA and/or kV according to patient size,and/or use of iterative reconstruction technique. COMPARISON: June 09, 2017 CT brain FINDINGS: Normal soft tissue structures. Normal calvarium. Normal size ventricles and extra-axial spaces for the patient''s age. Normal white matter tracts of the cerebral hemispheres. Normal basal ganglia and thalami. Normal brainstem. Normal cerebellum. There is no intracranial hemorrhage. There are no findings of an acute ischemic infarction. Normal visualized paranasal sinuses. CT/Brain/Head without Contrast IMPRESSION: Normal unenhanced CT scan of the brain. Electronically Signed: Sammy Pizarro MD at 19:11 EDT ,
--- NOTE | 2024-02-06 17:11 | CT_ITS ---
STUDY: CT CERVICAL SPINE WITHOUT CONTRAST REASON FOR EXAM: Female, 53 years old. injury RADIATION DOSAGE (If Supplied By Facility): CTDIvol = ( 16.79 ) mGy, DLP = ( 342.79 ) mGycm TECHNIQUE: High resolution transaxial imaging was performed without contrast material. Sagittal and coronal images were reconstructed. Individualized dose optimization techniques were used for this CT. The protocol utilizes one or more of the following dose reduction techniques: automated exposure control, adjustment of mA and/or kV according to patient size,and/or use of iterative reconstruction technique. COMPARISON: None FINDINGS: Normal craniovertebral junction. Normal anterior atlantoaxial articulation. Normal odontoid process. Normal cervical lordosis. Normal vertebral bodies and posterior osseous elements. C2-3: Normal endplates. Normal disc height and morphology. Normal central canal and intervertebral neuroforamina. C3-4: Normal endplates. Normal disc height and morphology. Normal central canal and intervertebral neuroforamina. C4-5: Normal endplates. Normal disc height and morphology. Normal central canal and intervertebral neuroforamina. C5-6: Normal endplates. Normal disc height and morphology. Normal central canal and narrowed left intervertebral neuroforamina. C6-7: Normal endplates. Normal disc height and morphology. Normal central canal and intervertebral neuroforamina. C7-T1: Normal endplates. Normal disc height and morphology. Normal central canal and intervertebral neuroforamina. Normal visualized soft tissue structures. CT/Spine Cervical without Contras IMPRESSION: No fracture Electronically Signed: Sammy Pizarro MD at 19:09 EDT ,
[2024-02-06] MEDS: Morphine 4 MG/ML Syringe IV (17:20)
[2024-02-06] MEDS: LORazepam 2 MG/ML Syringe 1 MG IV (17:20)
[2024-02-06] MEDS: Ondansetron 4 MG/2 ML Vial IV (17:21)
[2024-02-06 17:37] LABS: Absolute Lymphocyte Count 1.59 X10^3/uL (0.83-4.51); Absolute Neutrophil Count 7.4 X10^3/uL (2.0-7.7); Basophil# 0.01 X10^3/uL; Basophil% 0.1 % (0-1); Eosinophil# 0.04 X10^3/uL; Eosinophils% 0.4 % (0-5); Hematocrit 36.9 % (37-47); Hemoglobin 12.2 g/dL (12.0-15.0); Lymphocyte # 1.59 X10^3/ul (0.83-4.51); Lymphocyte % 16.3 % (19-41); Mean Corp Hgb Conc 33.1 g/dL (32-36); Mean Corpuscular Hgb 30.3 pg (27.0-32.0); Mean Corpuscular Volume 91.8 fL (81-99); Mean Platelet Vol. 10.8 fl (6.2-12.0); Monocyte# 0.73 X10^3/uL; Monocyte% 7.5 % (0-10); NRBC Flagged by Analyzer 0 % (0-5); Neutrophil # 7.36 X10^3/uL (2.7-7.7); Neutrophil % 75.3 % (47-70); Platelet Count 242 K/mm3 (150-450); RBC Distribution Width CV 11.9 % (11.6-14.6); RBC Distribution Width SD 40.9 fl (35.1-43.9); Red Blood Count 4.02 M/mm3 (4.2-5.4); White Blood Count 9.8 K/mm3 (4.4-11.0)
--- NOTE | 2024-02-06 17:45 | RAD_ITS ---
STUDY: X-RAY CHEST REASON FOR EXAM: Female, 53 years old. chest pain TECHNIQUE: Single frontal view of the chest. COMPARISON: CT chest December 13, 2023. FINDINGS: The lungs are clear and expanded. There is no demonstrated pleural abnormality. Normal size heart. Normal mediastinum and nat. Normal visualized pulmonary arteries. Normal visualized aortic arch and descending thoracic aorta. Normal visualized thoracic spine. Normal visualized ribs, clavicles, and shoulders. There is no demonstrated abnormality of the visualized soft tissue structures of the upper abdomen. RAD/Chest 1 View (Portable) IMPRESSION: Normal x-ray examination of the chest. Electronically Signed: Sammy Pizarro MD at 19:24 EDT ,
--- NOTE | 2024-02-06 17:45 | RAD_ITS ---
STUDY: X-RAY - PELVIS REASON FOR EXAM: Female, 53 years old. injury TECHNIQUE: One view of the pelvis was obtained. COMPARISON: None. FINDINGS: There is a non-specific bowel gas pattern. Normal visualized soft tissue structures. Normal bilateral iliac wings, sacroiliac joints and visualized sacrum. Normal visualized bilateral superior and inferior pubic rami. Normal pubic symphysis. Normal ischial tuberosities. Normal visualized right femoral head. Normal right acetabulum. Normal right hip joint. Normal visualized left femoral head. Normal left acetabulum. Normal left hip joint. RAD/Pelvis 1 or 2 Views IMPRESSION: Normal x-ray examination of the pelvis. Electronically Signed: Sammy Pizarro MD at 19:15 EDT ,
--- NOTE | 2024-02-06 17:45 | RAD_ITS ---
STUDY: X-RAY - RIGHT FOOT CLINICAL: Female, 53 years old. injury TECHNIQUE: 3 view(s) of the foot. COMPARISON: None. FINDINGS: Normal talus, calcaneus, and tarsal bones. Normal visualized subtalar, talonavicular, calcaneocuboid, tarsal and tarsometatarsal articulations. Normal metatarsi. Normal metatarsophalangeal joint of the great toe. Normal tibial and fibular sesamoid bones. Normal interphalangeal joint of the great toe. Normal phalanges of the great toe. Normal second through fifth metatarsophalangeal joints. Normal interphalangeal joints and phalanges of the lesser toes. The soft tissue structures are unremarkable. RAD/Foot min 3 Views IMPRESSION: Normal x-ray examination of the foot. Electronically Signed: Sammy Pizarro MD at 19:22 EDT ,
--- NOTE | 2024-02-06 17:45 | RAD_ITS ---
STUDY: X-RAY - RIGHT TIBIA AND FIBULA REASON FOR EXAM: Female, 53 years old. injury TECHNIQUE: 2 view(s) of the tibia and fibula were obtained. COMPARISON: None. FINDINGS: Normal visualized tibia. Normal visualized fibula. The soft tissue structures are unremarkable. RAD/Tibia & Fibula 2 Views IMPRESSION: Normal x-ray examination of the tibia and fibula. Electronically Signed: Sammy Pizarro MD at 19:13 EDT ,
--- NOTE | 2024-02-06 17:45 | RAD_ITS ---
STUDY: X-RAY - RIGHT FEMUR REASON FOR STUDY: Female, 53 years old. injury TECHNIQUE: 2 view(s) of the femur. COMPARISON: None. FINDINGS: Normal visualized femur. Normal visualized soft tissue structure. RAD/Femur Min 2 Views IMPRESSION: Normal x-ray examination of the femur. Electronically Signed: Sammy Pizarro MD at 19:16 EDT ,
[2024-02-06 17:59] LABS: Anion Gap 13 (5-15); BUN 20 mg/dL (7-18); BUN/Creat Ratio 22.9 RATIO (10-20); Calcium,Total 9.7 mg/dL (8.5-10.1); Chloride 107 mmol/L (98-107); Creatinine, Serum 0.87 mg/dL (0.55-1.02); EST Glomerular Filtration Rate 72 mL/min (>60); Est Glom Filt Rate - Afr Amer 88 mL/min (>60); Estimated Creatinine Clearance 79.48 ml/min; Glucose 105 mg/dL (74-106); Potassium 3.1 mmol/L (3.5-5.1); Sodium Level 140 mmol/L (136-145); Troponin-I HS (w/2H Reflex) 4 pg/mL (3.0-54.0)
--- NOTE | 2024-02-06 18:04 | EX.ED.GENINJ ---
HPI History of Present Illness Chief Complaint: Fall Informant: patient, family and EMS Narrative Narrative: 53-year-old female presenting to the emergency room chief complaint of fall. Patient was attempting to go inside the house when she fell unsure exactly why but states she felt a pop in her leg. She states that the entire leg now hurts. She states that she believes she hit her head and has a headache. She states that her hands are spasming she cannot catch her breath. She has been treated recently for sciatica/low back pain. History of bicuspid aortic valve and follows with [facility] does not require surgery. Patient has developed some chest pain shortness of breath. [facility] Medical History Chronic back pain Migraine DDD (degenerative disc disease) Bicuspid aortic valve Right groin pain Family history of first degree relative with bicuspid aortic valve Blurry vision, bilateral COVID-19 Generalized anxiety disorder GERD (gastroesophageal reflux disease) Lower GI bleed Chronic constipation Chronic sinusitis Heart valve problem Heart murmur Home Medications ?Medication ?Instructions ?Recorded ?Last Taken ?Type multivitamin 1 tab PO DAILY 10/10/23 Unknown History escitalopram oxalate 10 mg tablet 10 mg PO DAILY #90 tabs 10/11/23 Unknown Rx meloxicam 15 mg tablet 15 mg PO DAILY PRN pain #60 tabs 10/11/23 Unknown Rx rizatriptan 10 mg tablet See Rx Instructions .Route 11/27/23 Unknown Rx .COMPLEX #10 tabs estradiol 0.5 mg tablet 0.5 mg .Route .COMPLEX #30 tabs 12/27/23 Unknown Rx oxycodone-acetaminophen 5 mg-325 1 tab PO Q6H PRN PRN Pain 3 days 02/06/24 Unknown Rx mg tablet #12 TABLETS Allergy/AdvReac Type Severity Reaction Status Date / Time adhesive tape Allergy Mild Rash Verified 01/14/24 14:12 bacitracin (From Neosporin Allergy Mild rash Verified 01/14/24 14:12 ([id number])) neomycin (From Neosporin Allergy Mild rash Verified 01/14/24 14:12 ([id number])) polymyxin B (From Neosporin Allergy Mild rash Verified 01/14/24 14:12 ([id number])) Family History Mother CVA (cerebral vascular accident) Arthritis Aunt Breast cancer Son Bicuspid aortic valve Brother Bicuspid aortic valve Surgical History History of left knee surgery H/O esophagogastroduodenoscopy H/O: hysterectomy Social History current occupational status: employed current occupation: [employer]- Patient Access Smoking Status: Former smoker how long ago did patient quit smokin alcohol intake: current alcohol intake frequency: holidays/special occasions only substance use type: does not use what type of physical activity do you participate in: walking frequency: daily do you feel safe at home: Yes additional social history: ROS ROS ED Constitutional Constitutional ED: Denies chills, fever(s) or weight loss Eyes Eyes: Denies change in vision or diplopia ENT ENT ED: Denies ear pain, rhinorrhea or sore throat Cardiovascular Cardiovascular: Denies chest pain, orthopnea, palpitations or racing heartbeat Respiratory/Chest Respiratory/Chest: Denies cough, dyspnea or orthopnea Gastrointestinal Gastrointestinal: Denies abdominal pain, diarrhea, nausea or vomiting Genitourinary Genitourinary ED: Denies dysuria, hematuria or urinary frequency Musculoskeletal Musculoskeletal: Reports back pain, neck pain and other Details: R leg Pain the whole leg ; Denies arthralgias or myalgias Integumentary Denies abscess or rash Neurologic Neurologic: Reports headache(s), paresthesias and weakness Psychiatric Psychiatric: Denies anxiety, depression, suicidal ideation or suicidal thoughts Endocrine Endocrinology: Denies polydipsia, polyphagia or polyuria Allergic/Immunologic Allergic/Immunologic ED: Denies mouth swelling, tongue swelling or urticaria EXAM Physical Exam Const Vital Signs: 02/06/24 16:03 02/06/24 17:03 02/06/24 17:08 Temperature 97.8 F Temperature Source Oral Pulse Rate 80 84 Respiratory Rate 24 H 20 H Respiratory Effort Respiratory Depth Respiratory Pattern Blood Pressure 107/62 109/78 Blood Pressure Mean 77 88 Pulse Ox 97 100 Oxygen Delivery Method Room Air Room Air Room Air 02/06/24 17:09 02/06/24 18:00 02/06/24 18:01 Temperature Temperature Source Pulse Rate 74 Respiratory Rate 14 Respiratory Effort Normal Non-Labored Respiratory Depth Normal Respiratory Pattern Normal Blood Pressure 107/63 Blood Pressure Mean 76 Pulse Ox 97 Oxygen Delivery Method Room Air 02/06/24 19:00 02/06/24 20:30 02/06/24 21:00 Temperature Temperature Source Pulse Rate 71 93 75 Respiratory Rate 11 L 14 16 Respiratory Effort Respiratory Depth Respiratory Pattern Blood Pressure 121/67 H Blood Pressure Mean 85 Pulse Ox 95 98 Oxygen Delivery Method 02/06/24 21:27 Temperature 98.1 F Temperature Source Pulse Rate 91 Respiratory Rate 18 Respiratory Effort Respiratory Depth Respiratory Pattern Blood Pressure 107/83 H Blood Pressure Mean 91 Pulse Ox 100 Oxygen Delivery Method Positive well nourished and well developed General Appearance ED: well developed HEENT Reports normocephalic, head/scalp atraumatic and moist mucous membranes Eyes PERRL and EOMs intact bilaterally Neck no lymphadenopathy, supple and no JVD Neck Narrative: In a c-collar Resp clear to auscultation bilaterally Resp Narrative: Patient is hyperventilating Cardio regular rate, regular rhythm and no murmurs GI normal to inspection, nondistended, normoactive bowel sounds and non-tender Palpation: soft Back/Spine no CVA tenderness Extremity Extremity Narrative: Patient complains of tenderness to palpation diffusely down the entire left leg. I do not appreciate significant swelling deformity or ecchymosis. Appears neurovascular intact. Both arms are drawn up flexed at the elbow wrist and holding her fingers clenched General Extremety ED: Negative for edema General Extremity: Negative for edema Neuro oriented x3 and CN's II-XII intact bilaterally Sensorium / Orientation: alert Motor Exam: strength 5/5 throughout Psych Mood & Affect: anxious and tearful Skin no rashes or lesions noted and no wounds MDM MDM MDM Narrative Medical decision making narrative: Differential diagnosis includes concussion intracranial hemorrhage/hematoma skull fracture cervical spine fracture pelvic hip femur tibia ankle and foot fractures ankle sprain contusions hematomas Basic blood work was obtained which was negative. 2 sets of cardiac enzymes are negative. EKG is a normal sinus tachycardia. CT of the brain and cervical spine were negative for acute findings. She is cleared from c-collar. My independent interpretation of the plain films of the pelvis femur tib-fib foot and chest x-ray is no acute findings. Radiology concurs. Repeat examination after treatment with Toradol morphine and Ativan shows that the patient is improved. Placed her in an air splint and gave her crutches. She was able to ambulate. She has developed more swelling and ecchymosis over the lateral malleolus. I am going to recommend supportive care at home. I can write for short course of pain medication. Follow-up with primary care. I think most likely the chest pain shortness of breath was related to anxiety reaction. History & Record Review Discussion w/independent historian: Patient Lab Data Attestation: I reviewed the patient's lab results. Labs: Laboratory Results - last 24 hr 02/06/24 02/06/24 17:30 20:12 WBC 9.8 RBC 4.02 L Hgb 12.2 Hct 36.9 L MCV 91.8 MCH 30.3 MCHC 33.1 RDW Std Deviation 40.9 RDW Coeff of Denny 11.9 Plt Count 242 MPV 10.8 Immature Gran % (Auto) 0.400 Neut % (Auto) 75.3 H Lymph % (Auto) 16.3 L [place] % (Auto) 7.5 Eos % (Auto) 0.4 Baso % (Auto) 0.1 Absolute Neuts (auto) 7.4 Absolute Lymphs (auto) 1.59 Nucleated RBC % 0 Sodium 140 Potassium 3.1 L Chloride 107 Carbon Dioxide 20.0 L Anion Gap 13 BUN 20 H Creatinine 0.87 Estim Creat Clear Calc 79.48 Est GFR (MDRD) Af Amer 88 Est GFR (MDRD) Non-Af 72 BUN/Creatinine Ratio 22.9 H Glucose 105 Calcium 9.7 Troponin I High Sens 4 4 Radiography Diagnostic Testing: Clinical Impression(s) from Imaging Studies Brain CT 02/06/24 17:11 IMPRESSION: Normal unenhanced CT scan of the brain. Electronically Signed: Sammy Pizarro MD at 19:11 EDT , Cervical Spine CT 02/06/24 17:11 IMPRESSION: No fracture Electronically Signed: Sammy Pizarro MD at 19:09 EDT , Chest X-Ray 02/06/24 17:45 IMPRESSION: Normal x-ray examination of the chest. Electronically Signed: Sammy Pizarro MD at 19:24 EDT Reading Location ID and State: [facility] / [place] Tel , Service support , Femur X-Ray 02/06/24 17:45 IMPRESSION: Normal x-ray examination of the femur. Electronically Signed: Sammy Pizarro MD at 19:16 EDT Reading Location ID and State: [facility] / [place] Tel , Service support , Foot X-Ray 02/06/24 17:45 IMPRESSION: Normal x-ray examination of the foot. Electronically Signed: Sammy Pizarro MD at 19:22 EDT Reading Location ID and State: [facility] / [place] Tel , Service support , Pelvis X-Ray 02/06/24 17:45 IMPRESSION: Normal x-ray examination of the pelvis. Electronically Signed: Sammy Pizarro MD at 19:15 EDT Reading Location ID and State: [facility] / [place] Tel , Service support , Tibia/Fibula X-Ray 02/06/24 17:45 IMPRESSION: Normal x-ray examination of the tibia and fibula. Electronically Signed: Sammy Pizarro MD at 19:13 EDT , EKG Initial EKG: Attestation: I personally reviewed and interpreted this EKG as follows: Comments: Sinus tachycardia ventricular rate of 112 bpm. Discharge Plan Triage Chief Complaint: Fall ED Provider: Andrae Anderson Dx/Rx/DC Orders Clinical Impression: Fall, Head injury, Right ankle sprain, Contusion of right thigh Instructions: ED Contusion, Lower Extremity, ED Head Injury (Adult), ED Ankle Sprain (Adult) Prescriptions: New oxycodone-acetaminophen 5-325 mg tablet 1 tab PO Q6H PRN PRN (Reason: Pain) 3 Days Qty: 12 0RF No Action multivitamin Tablet 1 tab PO DAILY meloxicam 15 mg tablet 15 mg PO DAILY PRN (Reason: pain) Qty: 60 1RF escitalopram oxalate 10 mg tablet 10 mg PO DAILY Qty: 90 1RF estradiol 0.5 mg tablet 0.5 mg .ROUTE .COMPLEX Qty: 30 1RF Rx Instructions: 0.5 mg; 1/2 tab vaginally twice weekly rizatriptan 10 mg tablet See Rx Instructions .ROUTE .COMPLEX Qty: 10 2RF Dose Instruction: TAKE 1 TABLET BY MOUTH NEEDED FOR HEADAHE Rx Instructions: TAKE 1 TABLET BY MOUTH NEEDED FOR HEADAHE Stand Alone Forms: ED Work / School Excuse Primary Care Provider: Jason Garner Referrals: Jason Garner MD [Primary Care Provider] - 3-5 Days Activity Restrictions/Additional Instructions: Crutches as needed for weightbearing. Touchdown weightbearing as tolerated. I would recommend icing the ankle and thigh 20-minute sessions 3-4 times per day. I would recommend following up with primary care for repeat examination. Print Language: Bol[place]ian Disposition Disposition: Home, Self Care Discharge Date/Time: 02/06/24 21:29
[2024-02-06] MEDS: Ketorolac 30 MG/ML Syringe IV (18:56)
[2024-02-06 19:34] LABS: Reflex Troponin-HS? (from REC) Y
[2024-02-06 20:58] LABS: Troponin-I HS 4 pg/mL (3.0-54.0)
== END 2024-02-06 21:29 | disposition home or self-care (01) ==
PROVIDERS: Emergency Provider Emergency Medicine; PCP Internal Medicine; Visit Provider Emergency Medicine
DX: S09.90XA Unspecified injury of head, initial encounter (principal); S93.401A Sprain of unspecified ligament of right ankle, initial encounter; S70.11XA Contusion of right thigh, initial encounter; W19.XXXA Unspecified fall, initial encounter; Y92.019 Unspecified place in single-family (private) house as the place of occurrence of the external cause; Z87.891 Personal history of nicotine dependence; Z86.16 Personal history of COVID-19
CPT/HCPCS: 70450; 71045; 72125; 72170; 73552; 73590; 73630; 80048; 84484; 85025; 93005; 96374; 96375; 99285; A4216; J2405

== ENCOUNTER → 2024-03-04 | Outpatient (CLI) | payer OTHER, SELFPAY ==
--- NOTE | 2024-03-04 15:01 | RAD_ITS ---
HISTORY: back pain -- please do upright AP, LAT, flex/ext. TECHNIQUE: XR Spine Lumbar Min 4 Views. COMPARISON: 02/09/2022. FINDINGS: VERTEBRAE: Vertebral body heights preserved. Posterior elements appear intact. ALIGNMENT: No significant anterior or posterior subluxation. INTERVERTEBRAL DISCS: Degenerative endplate changes with chronic intervertebral disc space narrowing at L4-5 and L5-S1. SOFT TISSUES: Moderate stool in the colon. RAD/L/S Spine Min 4 Views IMPRESSION: No acute fracture or dislocation identified in the lumbar spine. Degenerative change of the lower lumbar spine. Electronically Signed: Portia Izquierdo MD at 9:57 EDT ,
== END | disposition home or self-care (01) ==
LOC: MTRAD 15:01
PROVIDERS: PCP Internal Medicine; Referring Provider Orthopaedic Surgery Orthopaedic Surgery of the Spine; Visit Provider Orthopaedic Surgery Orthopaedic Surgery of the Spine
DX: M54.50 Low back pain, unspecified (principal); G89.29 Other chronic pain
CPT/HCPCS: 72110

== ENCOUNTER → 2024-03-19 | Outpatient (CLI) | payer OTHER, SELFPAY ==
--- NOTE | 2024-03-19 10:18 | MRI_ITS ---
STUDY: MRI LUMBAR SPINE WITHOUT CONTRAST REASON FOR EXAM: Female, 53 years old. Low back pain into right hip. TECHNIQUE: Standardized fat and water weighted pulse sequences were obtained in the sagittal and axial planes. COMPARISON: CT abdomen and pelvis with contrast 10/26/2023. FINDINGS: T11-T12 and T12-L1: (Sagittal only). Normal endplates. Normal disc height, hydration and morphology. No ventral extradural defects. Normal central canal and bilateral intervertebral neural foramina. Normal lumbar lordosis. There is no substantial scoliosis. Normal conus medullaris that terminates at the mid T12 vertebral body level. L1-2: Normal endplates. Normal disc height and hydration. Minimal ventral extradural defect due to posterior bulging annulus. Normal facet joints. Capacious central canal. Normal bilateral recesses. Normal bilateral intervertebral neuroforamina. L2-3: Normal endplates. Normal disc height, hydration and morphology. Normal bilateral facet joints. Normal central canal and bilateral lateral recesses. Normal bilateral intervertebral neural foramina. L3-4: Normal endplates. Mild disc space height narrowing. Mild ventral extradural defect due to posterior bulging annulus. Normal facet joints. Normal central canal and bilateral lateral recesses. Normal bilateral intervertebral neuroforamina. L4-5: Normal endplates. Moderately pronounced disc space height narrowing, increasing towards the right side. Mild ventral extradural defect due to posterior bulging annulus. Normal facet joints. Normal central canal and bilateral lateral recesses. Normal bilateral intervertebral neuroforamina. L5-S1: Normal endplates. Pronounced disc space height narrowing. Normal facet joints. Tapered termination of the thecal sac at the lower S1 body level. Normal central canal and bilateral lateral recesses. Normal bilateral intervertebral neuroforamina. Normal visualized sacral ala. Normal visualized paraspinous soft tissue structures. MRI/Spine Lumbar (Routine) IMPRESSION: 1. No MRI evidence of lumbar extruded disc fragment, disc protrusion, spinal stenosis or nerve root displacement. 2. Prominent L4-L5 posterior bulging annulus. 3. Small L3-L4 posterior bulging annulus. Electronically Signed: Kt Thompson MD at 14:37 EDT ,
== END | disposition home or self-care (01) ==
LOC: MRI 10:17
PROVIDERS: PCP Internal Medicine; Referring Provider Orthopaedic Surgery Orthopaedic Surgery of the Spine; Visit Provider Orthopaedic Surgery Orthopaedic Surgery of the Spine
DX: M54.16 Radiculopathy, lumbar region (principal)
CPT/HCPCS: 72148

== ENCOUNTER → 2024-07-03 | Outpatient (CLI) | payer OTHER, SELFPAY ==
[2024-07-03 17:24] LABS: Anion Gap 7 (5-15); BUN 15 mg/dL (7-18); BUN/Creat Ratio 24.4 RATIO (10-20); Calcium,Total 9.6 mg/dL (8.5-10.1); Chloride 106 mmol/L (98-107); Creatinine, Serum 0.61 mg/dL (0.55-1.02); EST Glomerular Filtration Rate 108 mL/min (>60); Est Glom Filt Rate - Afr Amer 131 mL/min (>60); Glucose 70 mg/dL (74-106); Potassium 3.9 mmol/L (3.5-5.1); Sodium Level 141 mmol/L (136-145)
== END | disposition home or self-care (01) ==
LOC: BIMLAB 14:26
PROVIDERS: PCP Internal Medicine; Referring Provider Internal Medicine; Visit Provider Internal Medicine
DX: E87.6 Hypokalemia (principal)
CPT/HCPCS: 36415; 80048

== ENCOUNTER → 2024-10-28 | Outpatient (CLI) | payer OTHER, SELFPAY ==
--- NOTE | 2024-10-28 14:30 | BI_ITS ---
EXAM: SCRN MAMM (CAD)W/LAILA BILAT DATE: 10/28/2024 CLINICAL HISTORY: F, Age 53 y/o , SCREENING FOR BREAST CANCER Aunt with breast cancer. BREAST CANCER RISK ASSESSMENT: Not assessed TECHNIQUE: Bilateral screening digital breast tomosynthesis with 2D and 3D images. Computer aided detection. COMPARISON: Prior exam(s) dated October 24, 2023.. FINDINGS: TISSUE DENSITY: The breast tissue is composed of scattered area of fibroglandular density. Bilateral Breast Mammographic Findings: No significant masses, calcifications or other abnormalities are identified. Stable 7 mm well-defined nodule in the axillary region of the left breast suggestive of a small lymph node. BI/SCRN MAMM (CAD)W/LAILA BILAT IMPRESSION: OVERALL FINAL ASSESSMENT: BIRADS 2 BENIGN FINDING RECOMMENDATION: Routine annual follow-up in 1 Year A letter with findings and recommendations will be mailed to the patient. Reading Location: [place] [address]
== END | disposition home or self-care (01) ==
LOC: OPBI 13:58
PROVIDERS: PCP Internal Medicine; Referring Provider Nurse Practitioner Family; Visit Provider Nurse Practitioner Family
DX: Z12.31 Encounter for screening mammogram for malignant neoplasm of breast (principal)
CPT/HCPCS: 77063; 77067

== ENCOUNTER → 2024-12-24 | Outpatient (CLI) | payer OTHER, SELFPAY | END | disposition home or self-care (01) | LOC: LABSPEC 12:02 | PROVIDERS: PCP Internal Medicine; Visit Provider Nurse Practitioner Women's Health | DX: N89.8 Other specified noninflammatory disorders of vagina (principal) | CPT/HCPCS: 87070; 87205 ==

== ENCOUNTER → 2025-04-20 | Outpatient (CLI) | payer OTHER, SELFPAY ==
--- NOTE | 2025-04-20 13:50 | ECHOD_ITS ---
Reason For Study Reason For Study: BICUSPID AORTIC VALVE Procedure This was a 2D Doppler, Color Flow transthoracic echocardiogram. Exam performed in department. Left Ventricle Normal LV size. Left ventricular systolic function is normal. The left ventricular ejection fraction is 65 %. No regional wall motion abnormalities noted. Right Ventricle Normal RV size. Normal systolic function. Atria Normal left atrium. Normal right atrium. Mitral Valve Normal mitral valve. Tricuspid Valve Normal tricuspid valve. Mild (1+) tricuspid valve insufficiency. Pulmonary artery systolic pressure is 18 mmHg. Aortic Valve Bicuspid aortic valve. Trivial aortic valve insufficiency. Pulmonic Valve Normal pulmonic valve. Great Vessels Mild to moderately dilated aortic root. The sinus of valsalva is mildly dilated. The pulmonary artery is normal size. Inferior vena cava collapse with sniff. Pericardium/Pleural No pericardial effusion. MMode/2D Measurements & Calculations LVIDd: 5.0 cm IVSd: 0.75 cm LVOT diam: 2.3 cm LVIDs: 3.1 cm LVPWd: 0.71 cm LVOT area: 4.0 cm2 RVDd: 3.5 cm FS: 38.7 % Ao root diam: 4.2 cm asc Aorta Diam: 4.0 cm LAV(MOD- bp): 28.4 ml LAV(MOD- bp) Indexed: 15.5 ml/m2 LAV(MOD- sp2): 36.0 ml LAV(MOD- sp4): 20.8 ml SV(MOD- sp4): 43.7 ml LVAd ap4: 25.2 cm2 LVAd ap2: 26.5 cm2 LVLd ap4: 7.1 cm LVLd ap2: 7.4 cm SI(MOD- sp4): 23.9 ml/m2 EDV(MOD-sp4): 73.5 ml EDV(MOD-sp2): 77.3 ml EDV(sp4-el): 76.1 ml EDV(sp2-el): 80.6 ml LVAs ap4: 14.7 cm2 LVAs ap2: 14.3 cm2 LVLs ap4: 5.9 cm LVLs ap2: 6.2 cm ESV(MOD-sp4): 29.8 ml ESV(MOD-sp2): 26.8 ml ESV(sp4-el): 30.8 ml ESV(sp2-el): 27.7 ml EF(MOD-sp4): 59.5 % EF(MOD-sp2): 65.4 % EF(sp4-el): 59.5 % SV(MOD-sp2): 50.6 ml SV(sp4-el): 45.3 ml Ao sinus diam: 3.6 cm SI(MOD-sp2): 27.6 ml/m2 Ao ST Junction: 3.4 cm LA dimension(2D): 3.6 cm LA A4 area: 10.0 cm2 TAPSE: 1.7 cm RA A4 area: 11.2 cm2 Time Measurements MV dec time: 0.18 sec Doppler Measurements & Calculations MV E max oli: 59.4 cm/sec Lat Peak E' Oli: 9.9 cm/sec Med Peak E' Oli: 9.9 cm/sec MV A max oli: 54.5 cm/sec E/E' lat: 6.0 E/E' med: 6.0 MV E/A: 1.1 MV dec slope: 327.9 cm/sec2 Ao V2 max: 110.9 cm/sec AI max oli: 352.0 cm/sec Ao max P.9 mmHg AI max P.6 mmHg Ao V2 mean: 71.6 cm/sec AI dec slope: 166.6 cm/sec2 Ao mean P.4 mmHg AI P1/2t: 618.8 msec Ao V2 VTI: 24.7 cm AV (velocity ratio): 0.83 LORENZO(I,D): 3.3 cm2 LORENZO(V,D): 3.7 cm2 LV V1 max: 101.6 cm/sec SV(LVOT): 82.2 ml PA V2 max: 59.1 cm/sec LV V1 max P.1 mmHg LV V1 mean P.8 mmHg LV V1 mean: 61.1 cm/sec LV V1 VTI: 20.6 cm TR max oli: 189.0 cm/sec TR max P.3 mmHg ECHO/Echo Complete Interpretation Summary Normal LV size. Left ventricular systolic function is normal. The left ventricular ejection fraction is 65 %. Mild to moderately dilated aortic root. Bicuspid aortic valve. Trivial aortic valve insufficiency. The sinus of valsalva is mildly dilated. Ordering Physician: Gary Last Referring Physician: Jason Garner Performed By: Gail Anton RDCS
--- NOTE | 2025-04-20 13:50 | CT_ITS ---
PROCEDURE: CTA CHEST W/WO CONTRAST 04/20/2025 REASON FOR EXAM: DILATED ROOT TECHNIQUE: Procedure Code: [id number] Modality: CT Procedure: CTA CHEST W/WO CONTRAST Multiplanar Sagittal and Coronal images were obtained. CONTRAST: Isovue 370 VOLUME: 75 mL One or more dose reduction techniques were used (e.g., Automated exposure control, adjustment of the mA and/or kV according to patient size, use of iterative reconstruction technique). RADIATION DOSE SUMMARY: CTDlvol: 5.44 mGy DLP: 2014.46 mGycm COMPARISON: CTA chest December 13, 2023. # of known CTs in the past 12 months: 1 # of known Cardiac Nuclear Medicine Studies in the past 12 months: 0 FINDINGS: Thoracic Aorta: Aneurysmal dilation of the ascending aorta measures 4.2 cm. Heart: No cardiomegaly. Pulmonary Vessels: No evidence of pulmonary embolism. Hardware: Unremarkable. Lymph nodes: No lymphadenopathy. Lungs and Airways: Clear. Pleura: No pleural effusion or pneumothorax Upper Abdomen: No free air or free fluid. Bones: No acute bony abnormalities. CT/CTA Chest W/WO Contrast IMPRESSION: Stable aneurysmal dilation of the ascending aorta measures 4.2 cm. Otherwise, no acute findings. Reading Location: [id number]
== END | disposition home or self-care (01) ==
LOC: CVS 13:47
PROVIDERS: PCP Internal Medicine; Referring Provider Internal Medicine Cardiovascular Disease; Visit Provider Internal Medicine Cardiovascular Disease
DX: Q23.1 Congenital insufficiency of aortic valve (principal); I77.810 Thoracic aortic ectasia
CPT/HCPCS: 71275; 93306; Q9967

== ENCOUNTER → 2025-04-21 | Outpatient (CLI) | payer OTHER, SELFPAY ==
[2025-04-21 08:20] LABS: Anion Gap 11 (5-15); BUN 16 mg/dL (4-19); BUN/Creat Ratio 24.7 RATIO (10-20); Calcium,Total 9.7 mg/dL (7.6-11.0); Carbon Dioxide 28.0 mmol/L (21.0-32.0); Chloride 103 mmol/L (98-108); Glucose 84 mg/dL (70-99); Potassium 3.9 mmol/L (3.3-5.1)
== END | disposition home or self-care (01) ==
LOC: LAB 06:00
PROVIDERS: PCP Internal Medicine; Referring Provider Internal Medicine Cardiovascular Disease; Visit Provider Internal Medicine Cardiovascular Disease
DX: I77.810 Thoracic aortic ectasia (principal)
CPT/HCPCS: 36415; 80048